=== PATIENT | male | born 1975 | race Caucasian/White ===

== ENCOUNTER 2017-04-23 06:03 | Emergency (ER) | payer BC ==
[2017-04-23] MEDS ORDERED: Sodium Chloride 0.9% 10 ML Syringe FLUSH PRN (06:27)
[2017-04-23] MEDS ORDERED: Diltiazem 25 MG/5 ML SDV IVPUSH ONE ×3 (06:29→09:46)
[2017-04-23] MEDS ORDERED: Diltiazem 125 MG in Sodium Chloride 0.9% 100 ML IV SCH (06:30)
[2017-04-23] MEDS ORDERED: Sodium Chloride 0.9% 1,000 ML IV SCH (06:30)
[2017-04-23] MEDS ORDERED: Ibutilide 1 MG/10 ML Vial IVPUSH ONE (06:30)
[2017-04-23] MEDS ORDERED: Aspirin 81 MG Tab.Chew PO ONE (06:31)
[2017-04-23] MEDS ORDERED: Ondansetron 4 MG/2 ML SDV IVPUSH ONE (06:34)
[2017-04-23] MEDS ORDERED: Pantoprazole 40 MG Vial IVPUSH ONE (06:42)
--- NOTE | 2017-04-23 06:49 | EDM.PDOC ---
<Lino Johns - Last Filed: 04/23/17 12:09> ED HPI GENERAL MEDICAL PROBLEM - General Chief Complaint: Cardiovascular Problem Stated Complaint: RAPID HEARTBEAT/NAUSEA Time Seen by Provider: 04/23/17 06:23 - Related Data Allergies Allergy/AdvReac Type Severity Reaction Status Date / Time No Known Allergies Allergy Verified 04/23/17 06:23 Home Meds: Home Meds Aspirin 81 mg PO BEDTIME #30 tab.chew 10/09/16 [Rx] Diltiazem [Cardizem CD] 120 mg PO DAILY #30 cap.cd 04/23/17 [Rx] ED CARDIOLOGY PROCEDURES - Cardioversion Time of Cardioversion: 10:09 (Her seizure was done with the aid of propofol and [employer] present.) Indication: Atrial Fibrillation With RVR Patient Counseled: Yes Informed Consent Obtained: Yes Preparation: IV Access, Airway Management Equipment, Supplemental Oxygen Pre-Procedure Sedation: Propofol Cardioversion Energy: Other (Initial dose was 50 J then he required 100 J x 3 further doses to provide return to sinus rhythm.) Mode: Biphasic Successful: Yes Number of Attempts: Other: (4) Patient Condition Post Cardioversion: Improved Post Cardioversion EKG Reviewed: Yes (Patient required amiodarone 150 mg intravenously after the 3rd cardioversio) Course - Vital Signs Last Recorded V/S: Last Vital Signs Temp 96.8 F 04/23/17 06:09 Pulse 81 04/23/17 12:16 Resp 12 04/23/17 12:16 BP 120/70 04/23/17 12:16 Pulse Ox 96 04/23/17 12:16 - Orders/Labs/Meds Labs: Laboratory Tests 04/23/17 04/23/17 04/23/17 Range/Units 06:35 06:35 06:35 WBC 7.01 (4.23-9.07) K/mm3 RBC 5.25 (4.63-6.08) M/mm3 Hgb 16.0 (13.7-17.5) gm/L Hct 45.0 (40.1-51.0) % MCV 85.7 (79.0-92.2) fl MCH 30.5 (25.7-32.2) pg MCHC 35.6 H (32.2-35.5) g/dl RDW Std Deviation 41.0 (35.1-43.9) fL Plt Count 301 (163-337) K/mm3 MPV 8.8 L (9.4-12.3) fl Neut % (Auto) 50.4 (34.0-67.9) % Lymph % (Auto) 38.1 (21.8-53.1) % [place] % (Auto) 9.1 (5.3-12.2) % Eos % (Auto) 1.7 (0.8-7.0) Baso % (Auto) 0.6 (0.1-1.2) % Neut # (Auto) 3.53 (1.78-5.38) K/mm3 Lymph # (Auto) 2.67 (1.32-3.57) K/mm3 [place] # (Auto) 0.64 (0.30-0.82) K/mm3 Eos # (Auto) 0.12 (0.04-0.54) K/mm3 Baso # (Auto) 0.04 (0.01-0.08) K/mm3 PT 10.9 (8.0-13.0) SECONDS INR 1.00 Sodium 144 (136-145) mEq/L Potassium 4.0 (3.5-5.1) mEq/L Chloride 105 (98-107) mEq/L Carbon Dioxide 24 (21-32) mEq/L Anion Gap 19.0 H (5-15) BUN 11 (7-18) mg/dL Creatinine 1.3 (0.7-1.3) mg/dL Est Cr Clr Drug Dosing 84.51 mL/min Estimated GFR (MDRD) > 60 (>60) mL/min BUN/Creatinine Ratio 8.5 L (14-18) Glucose 101 (74-106) mg/dL Calcium 8.8 (8.5-10.1) mg/dL Total Bilirubin 0.4 (0.2-1.0) mg/dL AST 21 (15-37) U/L ALT 37 (16-63) U/L Alkaline Phosphatase 112 (46-116) U/L Troponin I < 0.017 (0.00-0.056) ng/mL Total Protein 8.1 (6.4-8.2) g/dl Albumin 4.0 (3.4-5.0) g/dl Globulin 4.1 gm/dL Albumin/Globulin Ratio 1.0 (1-2) Meds: Medications Discontinued Medications Generic Name Dose Route Start Last Admin Trade Name Adryan PRN Reason Stop Dose Admin Amiodarone HCl Confirm 04/23/17 10:13 04/23/17 10:30 Cordarone Administered 04/23/17 10:14 Not Given Dose 150 mg .ROUTE .STK-MED ONE Aspirin 324 mg 04/23/17 06:31 04/23/17 06:38 Aspirin PO 04/23/17 06:32 324 mg ONETIME ONE Administration Diltiazem HCl 10 mg 04/23/17 06:29 04/23/17 06:46 Diltiazem IVPUSH 04/23/17 06:30 10 mg ONETIME ONE Administration Diltiazem HCl 10 mg 04/23/17 07:05 04/23/17 07:20 Diltiazem IVPUSH 04/23/17 07:06 10 mg ONETIME ONE Administration Diltiazem HCl 10 mg 04/23/17 09:46 04/23/17 09:52 Diltiazem IVPUSH 04/23/17 09:47 10 mg ONETIME ONE Administration Diltiazem HCl 120 mg 04/23/17 11:19 04/23/17 11:41 Cardizem Cd PO 04/23/17 11:20 120 mg ONETIME ONE Administration Fentanyl 50 mcg 04/23/17 10:21 04/23/17 10:45 Sublimaze IVPUSH 04/23/17 10:22 50 mcg ONETIME ONE Administration Sodium Chloride 1,000 mls @ 999 mls/hr 04/23/17 06:30 04/23/17 06:45 Normal Saline IV 125 mls/hr ASDIRECTED JAIME Administration Diltiazem HCl 125 mg/ Sodium 125 mls @ 10 mls/hr 04/23/17 06:30 04/23/17 06: 50 Chloride IV 10 mg/hr TITRATE JAIME 10 mls/hr Protocol Administration 10 MG/HR Ibutilide Fumarate 1 mg/ 60 mls @ 240 mls/hr 04/23/17 08:04 04/23/17 08:26 Sodium Chloride IV 04/23/17 08:18 240 mls/hr ONETIME ONE Administration Lidocaine HCl Confirm 04/23/17 10:12 Xylocaine-Mpf 1% Administered 04/23/17 10:13 Dose 4 mls @ as directed .ROUTE .STK-MED ONE Lactated Ringer's 1,000 mls @ 999 mls/hr 04/23/17 10:02 04/23/17 10:06 Ringers, Lactated IV 04/23/17 11:02 999 mls/hr .BOLUS ONE Administration Lactated Ringer's Confirm 04/23/17 10:04 04/23/17 10:49 Ringers, Lactated Administered 04/23/17 10:05 Not Given Dose 1,000 mls @ as directed .ROUTE .STK-MED ONE Amiodarone HCl/Dextrose 360 mg in 200 mls @ 33.333 mls/hr 04/23/17 10:30 05/04 10:27 Nexterone In Dextrose 360 Mg/200 Ml IV 33.333 mls/hr ASDIRECTED JAIME Administration Protocol Amiodarone HCl/Dextrose Confirm 04/23/17 10:22 04/23/17 10:28 Nexterone In Dextrose 360 Mg/200 Ml Administered 04/23/17 10:23 Not Given Dose 360 mg in 200 mls @ as directed .ROUTE .STK-MED ONE Amiodarone HCl 150 mg/ 103 mls @ 600 mls/hr 04/23/17 10:10 04/23/17 10:31 Dextrose/Water IV 04/23/17 10:20 Not Given .BOLUS ONE Amiodarone HCl/Dextrose 150 mg 100 mls @ 400 mls/hr 04/23/17 10:10 04/23/17 10:13 / Premix IV 04/23/17 10:24 400 mls/hr NOW ONE Administration Protocol Ibutilide Fumarate 1 mg 04/23/17 06:30 04/23/17 07:27 Corvert IVPUSH 04/23/17 06:31 1 mg ONETIME ONE Administration Metoclopramide HCl 10 mg 04/23/17 09:46 04/23/17 09:55 Reglan IVPUSH 04/23/17 09:47 10 mg ONETIME ONE Administration Midazolam HCl Confirm 04/23/17 10:11 Versed 1 Mg/Ml Administered 04/23/17 10:12 Dose 2 mg .ROUTE .STK-MED ONE Ondansetron HCl 4 mg 04/23/17 06:34 04/23/17 06:44 Zofran IVPUSH 04/23/17 06:35 4 mg ONETIME ONE Administration Pantoprazole Sodium 40 mg 04/23/17 06:42 04/23/17 07:02 Protonix Iv IVPUSH 04/23/17 06:43 40 mg ONETIME ONE Administration Propofol Confirm 04/23/17 10:11 Diprivan 20 Ml Administered 04/23/17 10:12 Dose 200 mg .ROUTE .STK-MED ONE Propofol Confirm 04/23/17 10:25 Diprivan 20 Ml Administered 04/23/17 10:26 Dose 200 mg .ROUTE .STK-MED ONE Sodium Chloride 10 ml 04/23/17 06:27 04/23/17 08:43 Saline Flush FLUSH 10 ml ASDIRECTED PRN Administration Keep Vein Open - Re-Assessments/Exams Free Text/Narrative Re-Assessment/Exam: 04/23/17 07:[address] Gregory at change of shift. Chemistry is now back revealing a sodium of 144 potassium of 4.0. Portal 5 bicarbonate 24. Anion gap is elevated at 19.0. Open up his normal saline 2999 mils per hour. Creatinine is 1.3 cardiac markers troponin is less than 0.017. Therefore we will proceed with the Corvert 1 mg IV over 15 minutes the minibag. 04/23/17 08:06 first dose of Corvert failed to convert him to sinus rhythm. Remains in atrial fibrillation in the one teens. Will provide second dose of Corvert intravenously via 50ml minibag over 15 minutes. 04/23/17 08:42 second dose of Corvert has been infused. Cardizem drip will be restarted at 10 mg per hour. 04/23/17 09:33 segment also Corvert failed to provide conversion back to sinus rhythm. He remains in atrial fib up into the 120s at times. Cardizem drip is still running at 10 mg per hour. I therefore gave him the option of pursuing cardioversion since its lead in a few hours and she went into atrial fibrillation he is a good candidate for this. Also the intensive. It is for this time and Cardizem drip usually dictates ICU admission. He was advised to start always successful but usually is so. This would allow him to go home on oral Cardizem tablet. After discussion patient is elected to pursue this line of treatment. I will call anesthesia hopefully they can provide propofol to provide sedation for this procedure. 04/23/17 09:47 patient is feeling somewhat apprehensive about potential cardioversion. Atrial fib rate is between 127 and 145 at this time. and therefore going to repeat a 10 mg bolus dose of Cardizem IV. We'll begin Reglan 10 mg IV for his nausea. 04/23/17 10:17 Cardioversion has been carried out x4. Initial dose was 50 J which failed to provide any conversion. Second dose was 100 J which provided transient return to sinus rhythm. Third dose was 100 J again which provided only transient return to sinus rhythm for perhaps one minute. Therefore given amiodarone 10 mg IV over 2 minutes. Required a second dose of propofol to provide anesthesia. Fourth dose of electricity was 100 J which provided stabilization in sinus rhythm. I will therefore put up an amiodarone drip at 60 mg per hour. The diltiazem drip was discontinued prior to giving the amiodarone IV. 04/23/17 10:21 we'll give fentanyl 50 mcg IV for chest wall pain that occurred secondary to the recurrent cardioversion. 04/23/17 10:55 Remains in sinus rhythm at 79 per minute. Denies feeling any pain in his chest. Amiodarone infusion will be run from the one hour and then will be discontinued. I will place him on Cardizem 120 mg extended release once daily. 04/23/17 11:26 amiodarone infusion has been discontinued. He remained in sinus rhythm in the ED's. BP 111/84. I will give him his first tablet of Cardizem CD 120 mg preparation in the ED and then he will be discharged on this medication once daily. Advise follow up with his physician in approximately a month's time. 04/23/17 11:46 patient remains in sinus rhythm in the 91 range. BP is now up to 131/68. He is finishing up her dinner meal. He'll then be discharged home. Departure - Departure Time of Disposition: 11:50 Disposition: Home, Self-Care 01 Condition: good Clinical Impression: New onset atrial fibrillation Prescriptions: Diltiazem [Cardizem CD] 120 mg PO DAILY #30 cap.cd Instructions: Atrial Fibrillation, [id number] Referrals: PCP,Not In Area [Primary Care Provider] - Forms: ED Department Discharge Additional Instructions: Evaluation in the emergency today in regards to recurrence of atrial fibrillation with a rapid ventricular rate. He was therefore initially treated with Cardizem drip and brought the rate under control but he did not convert to 2 regular rhythm. He was given no medication called Corvert 1 mg intravenously x2 to trying return you to normal regular sinus rhythm but it failed. He was therefore treated with cardioversion using electricity to convert to back to regular rhythm. This did to check on the fourth shock and you have remained in regular rhythm since. Suggest return to Cardizem CD preparation 120 mg once daily either bedtime or person in the morning whichever time that he is either to remember. Suggest followup with her personal care provider in a month's time. Of course return to the ED if any further problems with palpitations or recurrence of atrial fibrillation occur. <Hugo Gregory - Last Filed: 04/24/17 18:36> ED HPI GENERAL MEDICAL PROBLEM - General Source of Information: Reports: Patient History Limitations: Reports: No Limitations - History of Present Illness INITIAL COMMENTS - FREE TEXT/NARRATIVE: The patient presents with palpitations. He has a history of A-fib with his 1st episode back in September. He was in the ICU for a few days and he converted just on cardizem. He had been on cardizem until about 2 weeks ago. He stopped taking it because he felt like it was making him gain some weight. He woke up this morning not feeling right and noticed his heart was beating fast. He denies chest pain or shortness of breath. He has no fever, chills, cough, congestion or runny nose. He has no abdominal pain or vomiting. He does have some nausea. He thinks this just started this morning when he woke up about 4am. Onset: Sudden Duration: Hour(s): (2) Severity: Moderate Improves with: Reports: None Worsens with: Reports: None Associated Symptoms: Reports: Nausea/Vomiting. Denies: Chest Pain, Fever/Chills , Shortness of Breath Past Medical History - Past Health History Medical/Surgical History: Denies Medical/Surgical History Cardiovascular History: Reports: Afib Gastrointestinal History: Reports: GERD - Past Surgical History HEENT Surgical History: Reports: Detached Retina Cardiovascular Surgical History: Reports: None Social & Family History - Family History Family Medical History: Noncontributory - Tobacco Use Smoking Status *Q: Never Smoker Second Hand Smoke Exposure: No - Caffeine Use Caffeine Use: Reports: None - Alcohol Use Days Per Week of Alcohol Use: 7 Number of Drinks Per Day: 2 Total Drinks Per Week: 14 - Recreational Drug Use Recreational Drug Use: No - Living Situation & Occupation Living situation: Reports: , with Significant Other, with Family Occupation: Employed ED ROS GENERAL - Review of Systems Review Of Systems: See Below Constitutional: Reports: No Symptoms HEENT: Reports: No Symptoms Respiratory: Reports: No Symptoms Cardiovascular: Reports: Palpitations. Denies: Chest Pain Endocrine: Reports: No Symptoms GI/Abdominal: Reports: Nausea. Denies: Abdominal Pain, Vomiting : Reports: No Symptoms Musculoskeletal: Reports: No Symptoms ED EXAM, GENERAL - Physical Exam Exam: See Below Exam Limited By: No Limitations General Appearance: Alert, No Apparent Distress Ears: Normal External Exam Nose: Normal Inspection Head: Atraumatic, Normocephalic Neck: Normal Inspection Respiratory/Chest: No Respiratory Distress, Lungs Clear, Normal Breath Sounds Cardiovascular: Regular Rate, Rhythm, No Edema, No Murmur GI/Abdominal: Soft, Non-Tender, No Organomegaly, No Mass Back Exam: Normal Inspection Extremities: Normal Inspection Neurological: Alert, Oriented, No Motor/Sensory Deficits EKG INTERPRETATION EKG Date: 04/23/17 Time: 06:15 Rhythm: a-fib Rate (beats/min): 157 [place]: normal QRS: normal ST-T: normal QT: normal Course - Orders/Labs/Meds Labs: Laboratory Tests 04/23/17 04/23/17 04/23/17 Range/Units 06:35 06:35 06:35 WBC 7.01 (4.23-9.07) K/mm3 RBC 5.25 (4.63-6.08) M/mm3 Hgb 16.0 (13.7-17.5) gm/L Hct 45.0 (40.1-51.0) % MCV 85.7 (79.0-92.2) fl MCH 30.5 (25.7-32.2) pg MCHC 35.6 H (32.2-35.5) g/dl RDW Std Deviation 41.0 (35.1-43.9) fL Plt Count 301 (163-337) K/mm3 MPV 8.8 L (9.4-12.3) fl Neut % (Auto) 50.4 (34.0-67.9) % Lymph % (Auto) 38.1 (21.8-53.1) % [place] % (Auto) 9.1 (5.3-12.2) % Eos % (Auto) 1.7 (0.8-7.0) Baso % (Auto) 0.6 (0.1-1.2) % Neut # (Auto) 3.53 (1.78-5.38) K/mm3 Lymph # (Auto) 2.67 (1.32-3.57) K/mm3 [place] # (Auto) 0.64 (0.30-0.82) K/mm3 Eos # (Auto) 0.12 (0.04-0.54) K/mm3 Baso # (Auto) 0.04 (0.01-0.08) K/mm3 PT 10.9 (8.0-13.0) SECONDS INR 1.00 Sodium 144 (136-145) mEq/L Potassium 4.0 (3.5-5.1) mEq/L Chloride 105 (98-107) mEq/L Carbon Dioxide 24 (21-32) mEq/L Anion Gap 19.0 H (5-15) BUN 11 (7-18) mg/dL Creatinine 1.3 (0.7-1.3) mg/dL Est Cr Clr Drug Dosing 84.51 mL/min Estimated GFR (MDRD) > 60 (>60) mL/min BUN/Creatinine Ratio 8.5 L (14-18) Glucose 101 (74-106) mg/dL Calcium 8.8 (8.5-10.1) mg/dL Total Bilirubin 0.4 (0.2-1.0) mg/dL AST 21 (15-37) U/L ALT 37 (16-63) U/L Alkaline Phosphatase 112 (46-116) U/L Troponin I < 0.017 (0.00-0.056) ng/mL Total Protein 8.1 (6.4-8.2) g/dl Albumin 4.0 (3.4-5.0) g/dl Globulin 4.1 gm/dL Albumin/Globulin Ratio 1.0 (1-2) - Re-Assessments/Exams Free Text/Narrative Re-Assessment/Exam: 04/23/17 06:51 I ordered an IV NS at 125mL/hr, zofran 4mg IV, cardizem bolus of 10mg and a drip at 10mg/hr, labs, EKG, CXR and possibly corvert to convert him. His EKG shows A-fib at a rate of 157. 04/23/17 07:06 I ordered another cardizem 10mg IV. It is change of shift. Dr Johns will be taking over. Departure - Departure Condition: good
--- NOTE | 2017-04-23 08:01 | CR ---
Chest: Portable view of the chest was obtained. Comparison: Previous chest x-ray of 12/31/16. Heart size appears within normal limits for portable technique. Upper mediastinum also appears within normal limits. Lungs are clear. Bony structures are grossly intact. Impression: 1. Nothing acute is appreciated on portable chest x-ray. Diagnostic code #1
[2017-04-23] MEDS ORDERED: Metoclopramide 10 MG/2 ML SDV IVPUSH ONE (09:46)
--- NOTE | 2017-04-23 09:53 | PCM.PREANE ---
Preanesthetic Assessment - Anesthesia/Transfusion/Family Hx Anesthesia History: Prior Anesthesia Without Reaction Family History of Anesthesia Reaction: No Transfusion History: No Prior Transfusion(s) - Review of Systems General: Malaise Pulmonary: No Symptoms Cardiovascular: Palpitations Gastrointestinal: No symptoms Neurological: No Symptoms Other: Reports: None - Physical Assessment NPO Status Date: 04/22/17 NPO Status Time: 00:00 Pulse: 129 O2 Sat by Pulse Oximetry: 98 Respiratory Rate: 16 Blood Pressure: 116/81 Vital Signs: Last Vital Signs Temp 36.0 C 04/23/17 06:09 Pulse 159 H 04/23/17 06:09 Resp 16 04/23/17 06:09 BP 120/100 H 04/23/17 06:09 Pulse Ox 98 04/23/17 06:09 Height: 1.85 m Weight: 113.398 kg ASA Class: 2E Mental Status: Alert & Oriented x3 Airway Class: Mallampati = 1 Dentition: Reports: Normal Dentition Thyro-Mental Finger Breadths: 3 Mouth Opening Finger Breadths: 3 ROM/Head Extension: Full Lungs: Clear to auscultation, Normal respiratory effort Cardiovascular: Irregular Rhythm, Tachycardia - Lab Values: Laboratory Last Values WBC 7.01 K/mm3 (4.23-9.07) 04/23/17 06:35 RBC 5.25 M/mm3 (4.63-6.08) 04/23/17 06:35 Hgb 16.0 gm/L (13.7-17.5) 04/23/17 06:35 Hct 45.0 % (40.1-51.0) 04/23/17 06:35 MCV 85.7 fl (79.0-92.2) 04/23/17 06:35 MCH 30.5 pg (25.7-32.2) 04/23/17 06:35 MCHC 35.6 g/dl (32.2-35.5) H 04/23/17 06:35 RDW Std Deviation 41.0 fL (35.1-43.9) 04/23/17 06:35 Plt Count 301 K/mm3 (163-337) 04/23/17 06:35 MPV 8.8 fl (9.4-12.3) L 04/23/17 06:35 Neut % (Auto) 50.4 % (34.0-67.9) 04/23/17 06:35 Lymph % (Auto) 38.1 % (21.8-53.1) 04/23/17 06:35 [place] % (Auto) 9.1 % (5.3-12.2) 04/23/17 06:35 Eos % (Auto) 1.7 (0.8-7.0) 04/23/17 06:35 Baso % (Auto) 0.6 % (0.1-1.2) 04/23/17 06:35 Neut # (Auto) 3.53 K/mm3 (1.78-5.38) 04/23/17 06:35 Lymph # (Auto) 2.67 K/mm3 (1.32-3.57) 04/23/17 06:35 [place] # (Auto) 0.64 K/mm3 (0.30-0.82) 04/23/17 06:35 Eos # (Auto) 0.12 K/mm3 (0.04-0.54) 04/23/17 06:35 Baso # (Auto) 0.04 K/mm3 (0.01-0.08) 04/23/17 06:35 PT 10.9 SECONDS (8.0-13.0) 04/23/17 06:35 INR 1.00 04/23/17 06:35 Sodium 144 mEq/L (136-145) 04/23/17 06:35 Potassium 4.0 mEq/L (3.5-5.1) 04/23/17 06:35 Chloride 105 mEq/L (98-107) 04/23/17 06:35 Carbon Dioxide 24 mEq/L (21-32) 04/23/17 06:35 Anion Gap 19.0 (5-15) H 04/23/17 06:35 BUN 11 mg/dL (7-18) 04/23/17 06:35 Creatinine 1.3 mg/dL (0.7-1.3) 04/23/17 06:35 Est Cr Clr Drug Dosing 84.51 mL/min 04/23/17 06:35 Estimated GFR (MDRD) > 60 mL/min (>60) 04/23/17 06:35 BUN/Creatinine Ratio 8.5 (14-18) L 04/23/17 06:35 Glucose 101 mg/dL (74-106) 04/23/17 06:35 Calcium 8.8 mg/dL (8.5-10.1) 04/23/17 06:35 Total Bilirubin 0.4 mg/dL (0.2-1.0) 04/23/17 06:35 AST 21 U/L (15-37) 04/23/17 06:35 ALT 37 U/L (16-63) 04/23/17 06:35 Alkaline Phosphatase 112 U/L (46-116) 04/23/17 06:35 Troponin I < 0.017 ng/mL (0.00-0.056) 04/23/17 06:35 Total Protein 8.1 g/dl (6.4-8.2) 04/23/17 06:35 Albumin 4.0 g/dl (3.4-5.0) 04/23/17 06:35 Globulin 4.1 gm/dL 04/23/17 06:35 Albumin/Globulin Ratio 1.0 (1-2) 04/23/17 06:35 - Imaging/EKG Impressions: on chart - Allergies Allergies/Adverse Reactions: Allergies Allergy/AdvReac Type Severity Reaction Status Date / Time No Known Allergies Allergy Verified 04/23/17 06:23 - Blood Blood Available: No Product(s) Available: None - Acknowledgements Anesthesia Type Planned: MAC Pt an Appropriate Candidate for the Planned Anesthesia: Yes Alternatives and Risks of Anesthesia Discussed w Pt/Guardian: Yes Pt/Guardian Understands and Agrees with Anesthesia Plan: Yes PreAnesthesia Questionnaire - Past Health History Medical/Surgical History: Denies Medical/Surgical History Cardiovascular History: Reports: Afib Gastrointestinal History: Reports: GERD - Past Surgical History HEENT Surgical History: Reports: Detached Retina Cardiovascular Surgical History: Reports: None - SUBSTANCE USE Smoking Status *Q: Never Smoker Tobacco Use Within Last Twelve Months: No Second Hand Smoke Exposure: No Days Per Week of Alcohol Use: 7 Number of Drinks Per Day: 2 Total Drinks Per Week: 14 Recreational Drug Use History: No - HOME MEDS Home Medications: Home Meds Aspirin 81 mg PO BEDTIME #30 tab.chew 10/09/16 [Rx] Diltiazem [Cardizem] 30 mg PO Q12HR #60 tablet 10/09/16 [Rx] - CURRENT (IN HOUSE) MEDS Current Meds: Current Medications Sodium Chloride (Normal Saline) 1,000 mls @ 999 mls/hr IV ASDIRECTED JAIME Last Admin: 04/23/17 06:45 Dose: 125 mls/hr Diltiazem HCl 125 mg/ Sodium (Chloride) 125 mls @ 10 mls/hr IV TITRATE JAIME; 10 MG/HR PRN Reason: Protocol Last Admin: 04/23/17 06:50 Dose: 10 mg/hr, 10 mls/hr Sodium Chloride (Saline Flush) 10 ml FLUSH ASDIRECTED PRN PRN Reason: Keep Vein Open Last Admin: 04/23/17 08:43 Dose: 10 ml Discontinued Medications Aspirin (Aspirin) 324 mg PO ONETIME ONE Stop: 04/23/17 06:32 Last Admin: 04/23/17 06:38 Dose: 324 mg Diltiazem HCl (Diltiazem) 10 mg IVPUSH ONETIME ONE Stop: 04/23/17 06:30 Last Admin: 04/23/17 06:46 Dose: 10 mg Diltiazem HCl (Diltiazem) 10 mg IVPUSH ONETIME ONE Stop: 04/23/17 07:06 Last Admin: 04/23/17 07:20 Dose: 10 mg Diltiazem HCl (Diltiazem) 10 mg IVPUSH ONETIME ONE Stop: 04/23/17 09:47 Ibutilide Fumarate 1 mg/ (Sodium Chloride) 60 mls @ 240 mls/hr IV ONETIME ONE Stop: 04/23/17 08:18 Last Admin: 04/23/17 08:26 Dose: 240 mls/hr Ibutilide Fumarate (Corvert) 1 mg IVPUSH ONETIME ONE Stop: 04/23/17 06:31 Last Admin: 04/23/17 07:27 Dose: 1 mg Metoclopramide HCl (Reglan) 10 mg IVPUSH ONETIME ONE Stop: 04/23/17 09:47 Ondansetron HCl (Zofran) 4 mg IVPUSH ONETIME ONE Stop: 04/23/17 06:35 Last Admin: 04/23/17 06:44 Dose: 4 mg Pantoprazole Sodium (Protonix Iv) 40 mg IVPUSH ONETIME ONE Stop: 04/23/17 06:43 Last Admin: 04/23/17 07:02 Dose: 40 mg
[2017-04-23] MEDS ORDERED: Lactated Ringers 1,000 ML IV ONE (10:02)
[2017-04-23] MEDS ORDERED: Lactated Ringers 1,000 ML ONE (10:04)
[2017-04-23] MEDS ORDERED: Amiodarone 150 MG in Dextrose 5% in Water 100 ML IV ONE ×2 (10:10)
[2017-04-23] MEDS ORDERED: Amiodarone In Dextrose,Iso-Osm 150 MG in Premix Bag 1 BAG IV ONE ×2 (10:10)
[2017-04-23] MEDS ORDERED: Propofol 200 MG/20 ML SDV ONE ×2 (10:11→10:25)
[2017-04-23] MEDS ORDERED: Midazolam 1 MG/ML 2 ML SDV ONE (10:11)
[2017-04-23] MEDS ORDERED: Lidocaine 1% 4 ML ONE (10:12)
[2017-04-23] MEDS ORDERED: Amiodarone 150 MG/3 ML SDV ONE (10:13)
[2017-04-23] MEDS ORDERED: fentaNYL 100 MCG/2 ML SDV IVPUSH ONE (10:21)
[2017-04-23] MEDS ORDERED: Diltiazem 120 MG Cap.CD PO ONE (11:19)
[2017-04-23 12:19] VITALS: BP 120/70
== END 2017-04-23 12:19 | disposition home or self-care (01) ==
LOC: JD.ED 06:03
DX: I48.91 Unspecified atrial fibrillation (principal); Z79.899 Other long term (current) drug therapy; K21.9 Gastro-esophageal reflux disease without esophagitis; Z98.890 Other specified postprocedural states
CPT/HCPCS: 36415; 71010; 80053; 84484; 85025; 85610; 92960; 93005; 96361; 96365; 96366; 96375; 96376; 99285; A9270; C9113; J0282; J1742; J2250; J2405; J2765; J3010; J7030; J7040; J7050; J7120; 00410; 99284-25; J2704; J3490

== ENCOUNTER 2018-01-15 11:44 | Emergency (ER) | payer BC ==
[2018-01-15 12:01] VITALS: BP 113/77
--- NOTE | 2018-01-15 13:41 | EDM.PDOC ---
<Shanita Reza - Last Filed: 01/15/18 13:36> ED HPI GENERAL MEDICAL PROBLEM - General Chief Complaint: Upper Extremity Injury/Pain Stated Complaint: RT ARM PAIN Time Seen by Provider: 01/15/18 13:00 - History of Present Illness INITIAL COMMENTS - FREE TEXT/NARRATIVE: Patient is a 42 year old male presents today with right elbow pain. The pain occurred at work when he was pulling heavy cables toward him and her felt a "pop " near his elbow. He was since in the walk-in clinic on Saturday and underwent an x-ray with no acute findings. We was given a compression sleeve and was told to manage with conservative therapy. He denies any previous arm injuries, numbness or tingling into his right hand, or pain at this time, but pain with supination and pronation. Patient is interested in obtaining an MRI, but was told at the clinic on Saturday that he would need to try conservative therapy and PT before that could be obtains. He is here today in hopes of obtaining an MRI. He also has a follow up appointment with his PCP for his elbow pain later today. 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 (see below) Other Treatments PLASTICS SUPERVISOR: motrin yesterday 800 mg Right Arm Pain Score (Numeric/FACES): 4 - Related Data Allergies Allergy/AdvReac Type Severity Reaction Status Date / Time No Known Allergies Allergy Verified 04/23/17 06:23 Home Meds: Home Meds Omeprazole [priLOSEC OTC] 20 mg PO DAILY 01/15/18 [History] Past Medical History - Past Health History Medical/Surgical History: Denies Medical/Surgical History Cardiovascular History: Reports: Afib, Other (See Below) Other Cardiovascular History: not being treated for a-fib anymore;off medication about 8 months ago Gastrointestinal History: Reports: GERD - Past Surgical History HEENT Surgical History: Reports: Detached Retina Cardiovascular Surgical History: Reports: None Social & Family History - Family History Family Medical History: Noncontributory - Tobacco Use Smoking Status *Q: Never Smoker Second Hand Smoke Exposure: No - Caffeine Use Caffeine Use: Reports: Soda Other Caffeine Use: no caffeiine - Alcohol Use Days Per Week of Alcohol Use: 7 Number of Drinks Per Day: 2 Total Drinks Per Week: 14 - Recreational Drug Use Recreational Drug Use: No - Living Situation & Occupation Living situation: Reports: , with Significant Other, with Family Occupation: Employed Review of Systems - Review of Systems Constitutional: Denies: Chills, Fever, Weakness Musculoskeletal: Reports: Arm Pain. Denies: Neck Pain, Shoulder Pain, Hand Pain Neurological: Denies: Numbness, Tingling ED EXAM, GENERAL - Physical Exam Exam Limited By: No Limitations General Appearance: Alert, No Apparent Distress Neck: Full Range of Motion Respiratory/Chest: No Respiratory Distress, Lungs Clear, Normal Breath Sounds Cardiovascular: Normal Peripheral Pulses, Regular Rate, Rhythm Extremities: Normal Inspection, Normal Capillary Refill, Arm Pain, Limited Range of Motion (pain upon supination and pronation of right elbow; no pain with flexion/extension). No: Joint Swelling, Increased Warmth, Redness Neurological: Alert, Oriented Psychiatric: Normal Affect, Normal Mood Course - Vital Signs Last Recorded V/S: Last Vital Signs Temp 36.6 C 01/15/18 11:59 Pulse 108 H 01/15/18 11:59 Resp 20 01/15/18 11:59 BP 113/77 01/15/18 11:59 Pulse Ox 97 01/15/18 11:59 Departure - Departure Disposition: Against Medical Advice 07 Clinical Impression: Strain of right elbow - Discharge Information Referrals: PCP,None [Primary Care Provider] - Forms: ED Department Discharge <Lino Johns - Last Filed: 01/16/18 07:20> ED HPI GENERAL MEDICAL PROBLEM - History of Present Illness Onset: Sudden Onset Date: 01/11/18 Duration: Day(s):, Constant Location: Reports: Upper Extremity, Right Quality: Reports: Ache (Right elbow pain) Severity: Moderate Improves with: Reports: Cold Therapy, Rest Worsens with: Reports: Movement Context: Reports: Other (Occurred while pulling on heavy cables in the workplace.). Denies: Activity, Exercise, Lifting, Sick Contact Associated Symptoms: Reports: No Other Symptoms Treatments PLASTICS SUPERVISOR: Reports: NSAIDS Review of Systems - Review of Systems Review Of Systems: See Below Musculoskeletal: Reports: Arm Pain (Right elbow pain) ED EXAM, GENERAL - Physical Exam Exam: See Below Course - Radiology Interpretation Free Text/Narrative:: 42-year-old male presented to the ED and was seen by PA student. He essentially has had an injury to his bicipital tendon at the elbow. He is scheduled appointment to see his primary care physician in one and a half hours. He came to the ED seeking MRI which was not indicated. Neither would be available. At a rate decision made once he was told this that he would leave the department. He will follow-up with his primary care provider later this afternoon as planned. Departure - Departure Time of Disposition: 13:50 Condition: Fair
== END 2018-01-15 13:26 | disposition left against medical advice (07) ==
LOC: JD.ED 11:44
DX: S46.911A Strain of unspecified muscle, fascia and tendon at shoulder and upper arm level, right arm, initial encounter (principal); Z79.899 Other long term (current) drug therapy; X50.1XXA Overexertion from prolonged static or awkward postures, initial encounter
CPT/HCPCS: 99283

== ENCOUNTER 2018-02-03 08:44 | Emergency (ER) | payer BC ==
--- NOTE | 2018-02-03 08:52 | EDM.PDOC ---
ED HPI GENERAL MEDICAL PROBLEM - General Chief Complaint: Chest Pain Stated Complaint: CHEST PAIN Time Seen by Provider: 02/03/18 08:50 Source of Information: Reports: Patient History Limitations: Reports: No Limitations - History of Present Illness INITIAL COMMENTS - FREE TEXT/NARRATIVE: 42-year-old male presents to the ED with atypical chest pains. States intermittent sharp lancinating squeezing type pains central chest twice in the last 2 days. He has a history of intermittent atrial fibrillation with A. fib of at least 2 documented occasions. Once he was admitted the hospital once she was cardioverted and discharged home. He believes symptoms started on Saturday evening which would be less than 48 hour frances. He is not aware of any palpitations and was x-ray surprised to find that he was back in fibrillation. He said some mild cough that hurts. Doesn't know for relief of short of breath he has no hemoptysis. Work today but came home because the was no work due to weather conditions. Does not feel dizzy or lightheaded. Left normally last night without any orthopnea or PND. He states he had about 7 beers over the weekend and in the past age fibrillation seems to have occurred after drinking alcohol. He hasn't drank for quite a lengthy period of time. Denies any decongestants or stimulants. Denies any street drug use. Only current medication is Prilosec 20 mg daily. Onset: Unknown/Unsure (He had the first part of squeezing type chest pain on Saturday evening later in the evening. Yesterday he appreciated some pressure up into his mandible and teeth were aching.) Duration: Hour(s): Location: Reports: Chest (Mostly central chest squeezing discomfort intermittently with radiation up into his mandible. 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: Other (see below) (None.) Chest Pain Score (Numeric/FACES): 2 - Related Data Allergies Allergy/AdvReac Type Severity Reaction Status Date / Time No Known Allergies Allergy Verified 02/03/18 08:50 Home Meds: Home Meds Omeprazole [priLOSEC OTC] 20 mg PO DAILY 01/15/18 [History] Diltiazem HCl [Cardizem Cd] 180 mg PO DAILY #30 cap.er.24h 02/03/18 [Rx] Rivaroxaban [Xarelto] 20 mg PO DAILY #30 tablet 02/03/18 [Rx] Past Medical History - Past Health History Medical/Surgical History: Denies Medical/Surgical History Cardiovascular History: Reports: Afib (Paroxysmal intermittent atrial fibrillation currently off medications for about 8 months), Other (See Below) Other Cardiovascular History: not being treated for a-fib anymore;off medication about 8 months ago Gastrointestinal History: Reports: GERD - Past Surgical History HEENT Surgical History: Reports: Detached Retina Cardiovascular Surgical History: Reports: None Social & Family History - Family History Family Medical History: Noncontributory - Tobacco Use Smoking Status *Q: Never Smoker Second Hand Smoke Exposure: No - Caffeine Use Caffeine Use: Reports: Soda Other Caffeine Use: no caffeiine - Alcohol Use Days Per Week of Alcohol Use: 7 Number of Drinks Per Day: 2 Total Drinks Per Week: 14 - Recreational Drug Use Recreational Drug Use: No - Living Situation & Occupation Living situation: Reports: , with Significant Other, with Family Occupation: Employed ED ROS GENERAL - Review of Systems Review Of Systems: See Below Constitutional: Denies: Fever, Chills, Malaise, Weakness, Decreased Appetite, Weight Loss HEENT: Reports: No Symptoms Respiratory: Reports: Shortness of Breath, Cough (Intermittently has a cough that hurts his anterior chest when he coughs. Not productive) Cardiovascular: Reports: Chest Pain. Denies: Blood Pressure Problem (As noted in history present illness), Claudication, Dyspnea on Exertion, Edema, Lightheadedness, Orthopnea, Palpitations Endocrine: Reports: No Symptoms GI/Abdominal: Reports: No Symptoms : Reports: No Symptoms Musculoskeletal: Reports: No Symptoms Skin: Reports: No Symptoms Neurological: Reports: No Symptoms Psychiatric: Reports: No Symptoms Hematologic/Lymphatic: Reports: No Symptoms Immunologic: Reports: No Symptoms ED EXAM, GENERAL - Physical Exam Exam: See Below Exam Limited By: No Limitations General Appearance: Alert, WD/WN, Anxious, Mild Distress (Mildly anxious once he found out he was in atrial fibrillation once again) Eye Exam: Bilateral Eye: Normal Inspection (No jaundice.) Head: Atraumatic, Normocephalic Neck: Normal Inspection, Supple, Non-Tender, Full Range of Motion, Other. No: Lymphadenopathy (L), Lymphadenopathy (R) Respiratory/Chest: No Respiratory Distress (No elevation of jugular venous pulsations), Lungs Clear, Normal Breath Sounds, No Accessory Muscle Use, Chest Non-Tender Cardiovascular: No Edema, No Gallop, No Murmur, No Rub, Tachycardia (Atrial fibrillation), Irregularly Irregular. No: Regular Rate, Rhythm (Atrial fibrillation on the monitor of 1 45/m) Peripheral Pulses: 2+: Posterior Tibial (L), Posterior Tibial (R), Dorsalis Pedis (L), Dorsalis Pedis (R) GI/Abdominal: Normal Bowel Sounds, Soft, Non-Tender, No Organomegaly, No Abnormal Bruit, No Mass, Pelvis Stable Back Exam: Normal Inspection, Full Range of Motion Extremities: Normal Inspection, Normal Range of Motion, Non-Tender, No Pedal Edema Neurological: Oriented, CN II-XII Intact, Normal Cognition, Normal Gait, No Motor/Sensory Deficits Psychiatric: Normal Affect, Normal Mood Skin Exam: Warm, Dry, Intact, Normal Color, No Rash EKG INTERPRETATION EKG Date: 02/03/18 Time: 08:50 Rhythm: A-Fib (With rate of 90-1 45/m) Rate (Beats/Min): 122 [place]: Normal P-Wave: Present QRS: Other (Decreased voltage in the limb leads.) ST-T: Other (Diffuse early repolarization pattern likely related to rate.) QT: Normal EKG Interpretation Comments: Abnormal ECG. Course - Vital Signs Last Recorded V/S: Last Vital Signs Temp 36.9 C 02/03/18 08:51 Pulse 84 02/03/18 11:56 Resp 11 L 02/03/18 11:56 BP 112/82 02/03/18 11:56 Pulse Ox 96 02/03/18 11:56 - Orders/Labs/Meds Orders: Active Orders 24 hr Category Date Time Status EKG Documentation Completion [RC] STAT Care 02/03/18 09:00 Active Diltiazem 125 mg Med 02/03/18 09:00 Active Sodium Chloride 0.9% [Normal Saline] 100 ml IV ASDIRECTED Rivaroxaban [Xarelto] Med 02/04/18 10:50 Once 20 mg PO ONETIME ONE Sodium Chloride 0.9% [Normal Saline] 1,000 ml Med 02/03/18 09:00 Active IV ASDIRECTED Medication Orders Diltiazem HCl 125 mg/ Sodium (Chloride) 125 mls @ 10 mls/hr IV ASDIRECTED JAIME PRN Reason: 10 MG/HR Last Admin: 02/03/18 09:16 Dose: 10 mg/hr, 10 mls/hr Sodium Chloride (Normal Saline) 1,000 mls @ 125 mls/hr IV ASDIRECTED JAIME Last Admin: 02/03/18 09:08 Dose: 125 mls/hr Rivaroxaban (Xarelto) 20 mg PO ONETIME ONE Stop: 02/04/18 10:51 Last Admin: 02/03/18 11:07 Dose: 20 mg Labs: Laboratory Tests 02/03/18 02/03/18 02/03/18 Range/Units 09:00 09:00 09:00 WBC 6.75 (4.23-9.07) K/mm3 RBC 5.76 (4.63-6.08) M/mm3 Hgb 17.2 (13.7-17.5) gm/L Hct 49.8 (40.1-51.0) % MCV 86.5 (79.0-92.2) fl MCH 29.9 (25.7-32.2) pg MCHC 34.5 (32.2-35.5) g/dl RDW Std Deviation 41.9 (35.1-43.9) fL Plt Count 222 (163-337) K/mm3 MPV 9.3 L (9.4-12.3) fl Neutrophils % (Manual) 71 H (40-60) % Band Neutrophils % 0 (0-10) % Lymphocytes % (Manual) 18 L (20-40) % Atypical Lymphs % 0 % Monocytes % (Manual) 8 (2-10) % Eosinophils % (Manual) 2 (0.8-7.0) % Basophils % (Manual) 1 (0.2-1.2) Platelet Estimate Adequate Anisocytosis 1+ slight RBC Morph Comment Abnormal PT 10.7 (8.0-13.0) SECONDS INR 1.00 D-Dimer, Quantitative < 0.19 L (0.19-0.59) mg/L Sodium 139 (136-145) mEq/L Potassium 4.1 (3.5-5.1) mEq/L Chloride 105 (98-107) mEq/L Carbon Dioxide 24 (21-32) mEq/L Anion Gap 14.1 (5-15) BUN 17 (7-18) mg/dL Creatinine 1.4 H (0.7-1.3) mg/dL Est Cr Clr Drug Dosing 79.92 mL/min Estimated GFR (MDRD) 56 (>60) mL/min BUN/Creatinine Ratio 12.1 L (14-18) Glucose 84 (74-106) mg/dL Calcium 9.4 (8.5-10.1) mg/dL Magnesium (1.8-2.4) mg/dl Total Bilirubin 0.5 (0.2-1.0) mg/dL AST 19 (15-37) U/L ALT 29 (16-63) U/L Alkaline Phosphatase 109 (46-116) U/L CK-MB (CK-2) 1.3 (0-3.6) ng/ml Troponin I < 0.017 (0.00-0.056) ng/mL C-Reactive Protein 0.2 (<1.0) mg/dL NT-Pro-B Natriuret Pep (0-125) pg/mL Total Protein 8.0 (6.4-8.2) g/dl Albumin 4.1 (3.4-5.0) g/dl Globulin 3.9 gm/dL Albumin/Globulin Ratio 1.1 (1-2) Amylase (25-115) U/L TSH 3rd Generation 1.323 (0.358-3.74) uIU/mL Urine Opiates Screen (NEGATIVE) Ur Buprenorphine Scrn (NEGATIVE) Ur Oxycodone Screen (NEGATIVE) Urine Methadone Screen (NEGATIVE) Ur Propoxyphene Screen (NEGATIVE) Ur Barbiturates Screen (NEGATIVE) Ur Tricyclics Screen (NEGATIVE) Ur Phencyclidine Scrn (NEGATIVE) Ur Amphetamine Screen (NEGATIVE) U Methamphetamines Scrn (NEGATIVE) U Benzodiazepines Scrn (NEGATIVE) U Cocaine Metab Screen (NEGATIVE) U Marijuana (THC) Screen (NEGATIVE) 02/03/18 02/03/18 02/03/18 Range/Units 09:00 09:00 10:31 WBC (4.23-9.07) K/mm3 RBC (4.63-6.08) M/mm3 Hgb (13.7-17.5) gm/L Hct (40.1-51.0) % MCV (79.0-92.2) fl MCH (25.7-32.2) pg MCHC (32.2-35.5) g/dl RDW Std Deviation (35.1-43.9) fL Plt Count (163-337) K/mm3 MPV (9.4-12.3) fl Neutrophils % (Manual) (40-60) % Band Neutrophils % (0-10) % Lymphocytes % (Manual) (20-40) % Atypical Lymphs % % Monocytes % (Manual) (2-10) % Eosinophils % (Manual) (0.8-7.0) % Basophils % (Manual) (0.2-1.2) Platelet Estimate Anisocytosis RBC Morph Comment PT (8.0-13.0) SECONDS INR D-Dimer, Quantitative (0.19-0.59) mg/L Sodium (136-145) mEq/L Potassium (3.5-5.1) mEq/L Chloride (98-107) mEq/L Carbon Dioxide (21-32) mEq/L Anion Gap (5-15) BUN (7-18) mg/dL Creatinine (0.7-1.3) mg/dL Est Cr Clr Drug Dosing mL/min Estimated GFR (MDRD) (>60) mL/min BUN/Creatinine Ratio (14-18) Glucose (74-106) mg/dL Calcium (8.5-10.1) mg/dL Magnesium 1.7 L (1.8-2.4) mg/dl Total Bilirubin (0.2-1.0) mg/dL AST (15-37) U/L ALT (16-63) U/L Alkaline Phosphatase (46-116) U/L CK-MB (CK-2) (0-3.6) ng/ml Troponin I (0.00-0.056) ng/mL C-Reactive Protein (<1.0) mg/dL NT-Pro-B Natriuret Pep 1154 H (0-125) pg/mL Total Protein (6.4-8.2) g/dl Albumin (3.4-5.0) g/dl Globulin gm/dL Albumin/Globulin Ratio (1-2) Amylase 75 (25-115) U/L TSH 3rd Generation (0.358-3.74) uIU/mL Urine Opiates Screen Negative (NEGATIVE) Ur Buprenorphine Scrn Negative (NEGATIVE) Ur Oxycodone Screen Negative (NEGATIVE) Urine Methadone Screen Negative (NEGATIVE) Ur Propoxyphene Screen Negative (NEGATIVE) Ur Barbiturates Screen Negative (NEGATIVE) Ur Tricyclics Screen Negative (NEGATIVE) Ur Phencyclidine Scrn Negative (NEGATIVE) Ur Amphetamine Screen Negative (NEGATIVE) U Methamphetamines Scrn Negative (NEGATIVE) U Benzodiazepines Scrn Negative (NEGATIVE) U Cocaine Metab Screen Negative (NEGATIVE) U Marijuana (THC) Screen Negative (NEGATIVE) Meds: Medications Generic Name Dose Route Start Last Admin Trade Name Freq PRN Reason Stop Dose Admin Diltiazem HCl 125 mg/ Sodium 125 mls @ 10 mls/hr 02/03/18 09:00 02/03/18 09: 16 Chloride IV 10 mg/hr ASDIRECTED JAIME 10 mls/hr 10 MG/HR Administration Sodium Chloride 1,000 mls @ 125 mls/hr 02/03/18 09:00 02/03/18 09:08 Normal Saline IV 125 mls/hr ASDIRECTED JAIME Administration Rivaroxaban 20 mg 02/04/18 10:50 02/03/18 11:07 Xarelto PO 02/04/18 10:51 20 mg ONETIME ONE Administration Discontinued Medications Generic Name Dose Route Start Last Admin Trade Name Freq PRN Reason Stop Dose Admin Aspirin 324 mg 02/03/18 09:06 02/03/18 09:17 Aspirin PO 02/03/18 09:07 324 mg ONETIME ONE Administration Diltiazem HCl 10 mg 02/03/18 08:58 02/03/18 09:08 Diltiazem IVPUSH 02/03/18 08:59 10 mg ONETIME ONE Administration Diltiazem HCl 180 mg 02/03/18 10:49 02/03/18 10:59 Cardizem Cd PO 02/03/18 10:50 180 mg ONETIME ONE Administration - Radiology Interpretation Free Text/Narrative:: 42-year-old male once again presents to the ED with central chest pressure discomfort intermittently for the last 2 days. Pain intermittently has rated up into his mandible and mediastinum teeth hurt. This suggest angina. On the monitor he is in atrial fibrillation with a rate as high as 1 50/m. Is a history of paroxysmal atrial fibrillation with documentation of this rhythm at least twice in the past. The first time he was admitted to hospital. Second time he was cardioverted in the ED. He was on medications up until about 8 months ago to keep atrial fibrillation at bay. He states all times that is developing fibrillation seems to be after drinking alcohol. He admits to having 7 or 8 beers over the weekend celebrating [employer]. Does not use any other stimulant drugs . Currently only medication he is on is omeprazole 20 mg daily ECG shows atrial fibrillation with a rate of 9245/m. Diffuse early repolarization pattern without any definite ischemic changes. Decreased voltage in the limb leads. Plan complete cardiac workup will be done. Given 4 baby aspirins chewed. One view chest x-ray to be done .IV will be normal saline at 125 mils per hour. Cardizem 10 mg IV bolus to be given and then 10 mg drip per hour. - Re-Assessments/Exams Free Text/Narrative Re-Assessment/Exam: 02/03/18 09:24 portable chest x-ray is essentially normal. His or perhaps slightly hyperinflated but he is a tall man. Heart rate is starting to come under control in the 1 teens. Blood pressure is 105/91. 02 sats are 98% on room air. From reading my old notes from April 18 I cardioverted him I was able slowed down with Cardizem I'm [place] 2 doses did nothing. He required cardioversion 4 with the use of amiodarone 10 mg IV bolus to maintain him in sinus rhythm. I will await his labs and then maybe converted back to amiodarone infusion prior to consideration of cardioversion. 02/03/18 09:45 rate is under good control around 95-100/m. BP is 110/80. Labs are pending. 02/03/18 10:16 Labs are back showing a normal white count at 6.75. Differential 71% neutrophils no bands. Hemoglobin is slightly elevated at 17.2 with hematocrit of 49.8 suggesting some degree of hemoconcentration. Is normal 222, 000. PT is 10.7 with an INR of 1.0. D-dimer is less than 0.19. Sodium is 139 with a potassium of 4.1. Cord 105 with a bicarbonate of 24. And a gap is normal at 14.1. BUNs 17 with a creatinine of 1.4. Magnesium is slightly low at 1.7. Liver function is normal. Troponin is less than 0.017. BNP is elevated at 1154 TSH is normal at 1.32. Amylase normal at 75. It therefore appears patient is a candidate for cardioversion. I will discuss this with him. 02/03/18 10:54 entered into discussion about whether the patient would want to pursue cardioversion as he is a candidate. After discussion he decided against pursuing cardioversion at this time. He will therefore be placed on Cardizem CD 180 mg once daily preparation and Xarelto 20 mg once a day. Of note both Eliquis and Xarelto tend to provide potential higher equivalents his of blood thinning with Cardizem on board. 02/03/18 12:15: He remains in atrial fibrillation in the mid 80s off of the diltiazem drip for 45 minutes. He will therefore be discharged home at his request. He has received his first dose of Cardizem CD 180 mg preparation in the ED which will be repeated daily for the next month. I also placed him on Xarelto with the first tablet 20 mg given in the ED. He will have this tablet taken once daily until we identify that he is converted back to sinus rhythm. I' ve advised him to stay on the Cardizem CD preparation long-term in an effort to prevent recurrence of intermittent atrial fibrillation and thus stroke risk. Is to follow-up with his primary care provider on Saturday this week to see her whether or not he is converted to sinus rhythm. 50% of patients usually converted within 2-3 days of starting Cardizem. Departure - Departure Time of Disposition: 11:50 Disposition: Home, Self-Care 01 Condition: Fair Clinical Impression: Paroxysmal atrial fibrillation with RVR Prescriptions: Diltiazem HCl [Cardizem Cd] 180 mg PO DAILY #30 cap.er.24h Rivaroxaban [Xarelto] 20 mg PO DAILY #30 tablet Instructions: Atrial Fibrillation, [id number] Referrals: PCP,None [Primary Care Provider] - Forms: ED Department Discharge Additional Instructions: Evaluation in the emergency room this morning in regards to currents of atrial fibrillation with a rate up to 158/m. Symptoms likely started again on Saturday night. Rate was better control with Cardizem intravenously. Lab work did not show any abnormalities other than that there is some backup of fluid in your lungs from the rapid heart rate over the last 2 days. You elected not to undergo cardioversion at this time and therefore will be treated with Cardizem 180 mg CD preparation once daily to keep her heart rate in control. Due to the risk of stroke as we discussed you need to go on a blood thinner and I would recommend a Xarelto 20 mg once daily. Suggest follow-up with your personal care provider in 5 days time to see if you're still in atrial fibrillation. If the you have converted back to regular rhythm and medications should be continued for another couple of weeks and then if you remain in regular rhythm the Xarelto could be stopped. I would recommend staying on the cart is I'm CD preparation once daily to keep her heart-from going back into atrial fibrillation. Definitely no "chickens feet" to eat in the future. - My Orders Last 24 Hours: My Active Orders 02/03/18 09:00 EKG Documentation Completion [RC] STAT Diltiazem 125 mg Sodium Chloride 0.9% [Normal Saline] 100 ml IV ASDIRECTED Sodium Chloride 0.9% [Normal Saline] 1,000 ml IV ASDIRECTED 02/04/18 10:50 Rivaroxaban [Xarelto] 20 mg PO ONETIME ONE - Assessment/Plan Last 24 Hours: My Active Orders 02/03/18 09:00 EKG Documentation Completion [RC] STAT Diltiazem 125 mg Sodium Chloride 0.9% [Normal Saline] 100 ml IV ASDIRECTED Sodium Chloride 0.9% [Normal Saline] 1,000 ml IV ASDIRECTED 02/04/18 10:50 Rivaroxaban [Xarelto] 20 mg PO ONETIME ONE
[2018-02-03] MEDS ORDERED: Diltiazem 25 MG/5 ML SDV IVPUSH ONE (08:58)
[2018-02-03] MEDS ORDERED: Diltiazem 125 MG in Sodium Chloride 0.9% 100 ML IV SCH (09:00)
[2018-02-03] MEDS ORDERED: Sodium Chloride 0.9% 1,000 ML IV SCH (09:00)
[2018-02-03] MEDS ORDERED: Aspirin 81 MG Tab.Chew PO ONE (09:06)
[2018-02-03] MEDS ORDERED: Diltiazem 180 MG Cap.CD PO ONE (10:49)
--- NOTE | 2018-02-03 11:05 | CR ---
Chest: Portable view of the chest was obtained. Comparison: Prior chest x-ray of 04/23/17. Heart size and mediastinum are normal. Lungs are clear. Bony structures are grossly intact. Impression: 1. Nothing acute is seen on portable chest x-ray. Diagnostic code #1
[2018-02-03 12:05] VITALS: BP 112/82
[2018-02-04] MEDS ORDERED: Rivaroxaban 10 MG Tab PO ONE (10:50)
== END 2018-02-03 12:05 | disposition home or self-care (01) ==
LOC: JD.ED 08:44
DX: I48.91 Unspecified atrial fibrillation (principal); Z79.899 Other long term (current) drug therapy
CPT/HCPCS: 36415; 71045; 80053; 80306; 82150; 82553; 83735; 83880; 84443; 84484; 85025; 85379; 85610; 86140; 93005; 96365; 96366; 96376; 99285; A9270; J3490; J7030; J7040; 93010

== ENCOUNTER 2018-07-12 10:43 | Emergency (ER) | payer OTHER, BC ==
[2018-07-12] MEDS ORDERED: Ketorolac 60 MG/2 ML SDV IM ONE (11:44)
--- NOTE | 2018-07-12 11:52 | EDM.PDOC ---
ED HPI GENERAL MEDICAL PROBLEM - General Chief Complaint: Back Pain or Injury Stated Complaint: BACK PAIN Time Seen by Provider: 07/12/18 11:09 Middle Back Pain Score (Numeric/FACES): 10 - Related Data Allergies Allergy/AdvReac Type Severity Reaction Status Date / Time No Known Allergies Allergy Verified 07/12/18 10:51 Home Meds: Home Meds Omeprazole [priLOSEC OTC] 20 mg PO DAILY 01/15/18 [History] Diltiazem HCl [Cardizem Cd] 180 mg PO DAILY #30 cap.er.24h 02/03/18 [Rx] Rivaroxaban [Xarelto] 20 mg PO DAILY #30 tablet 02/03/18 [Rx] Cephalexin [Keflex] 500 mg PO TID 07/12/18 [History] Cyclobenzaprine [Flexeril] 10 mg PO TID 7 Days #20 tab 07/12/18 [Rx] oxyCODONE HCl/Acetaminophen [Oxycodone-Acetaminophen 5-325] 1 tab PO Q6HR PRN [History] Past Medical History - Past Health History Medical/Surgical History: Denies Medical/Surgical History Cardiovascular History: Reports: Afib Other Cardiovascular History: not being treated for a-fib anymore;off medication about 8 months ago Gastrointestinal History: Reports: GERD - Past Surgical History HEENT Surgical History: Reports: Detached Retina Cardiovascular Surgical History: Reports: None Male Surgical History: Reports: Vasectomy Other Male Surgeries/Procedures: Vaectomy reversal (06/2018) Social & Family History - Family History Family Medical History: Noncontributory - Tobacco Use Smoking Status *Q: Never Smoker Second Hand Smoke Exposure: No - Caffeine Use Caffeine Use: Reports: None Other Caffeine Use: no caffeiine - Alcohol Use Days Per Week of Alcohol Use: 2 Number of Drinks Per Day: 4 Total Drinks Per Week: 8 Date of Last Drink: 07/10/18 - Recreational Drug Use Recreational Drug Use: No - Living Situation & Occupation Living situation: Reports: , with Significant Other, with Family Occupation: Employed ED ROS GENERAL - Review of Systems Review Of Systems: See Below ED EXAM, UPPER BACK/NECK PAIN - Physical Exam Exam: See Below Course - Vital Signs Last Recorded V/S: Last Vital Signs Temp 36.3 C 07/12/18 12:17 Pulse 81 07/12/18 12:17 Resp 20 07/12/18 12:17 BP 111/78 07/12/18 12:17 Pulse Ox 98 07/12/18 10:57 - Orders/Labs/Meds Meds: Medications Discontinued Medications Generic Name Dose Route Start Last Admin Trade Name Adryan PRN Reason Stop Dose Admin Ketorolac Tromethamine 60 mg 07/12/18 11:44 07/12/18 12:04 Toradol IM 07/12/18 11:45 60 mg ONETIME ONE Administration Departure - Departure Time of Disposition: 11:48 Disposition: Home, Self-Care 01 Clinical Impression: Low back pain Qualifiers: Chronicity: acute Back pain laterality: midline Sciatica presence: without sciatica Qualified Code(s): M54.5 - Low back pain - Discharge Information Prescriptions: Cyclobenzaprine [Flexeril] 10 mg PO TID 7 Days #20 tab Instructions: Back Pain, Adult Referrals: Xena Cantor PA [Primary Care Provider] - Forms: ED Department Discharge Additional Instructions: Perform stretching exercises I demonstrated. Try to maintain normal activity, but avoid excess strain/lifting until symptoms subside. Alternate heat and cold, as discussed. Beginning tomorrow, Ibuprofen, 800 mg every 8 hours with food, for 4 days, as discussed. Followup with provider, as discussed.
[2018-07-12 12:17] VITALS: BP 111/78
--- NOTE | 2018-07-12 14:20 | ER ---
CHIEF COMPLAINT: Reason from emergency room visit is low back pain. 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 Approximately 3 days ago, after shutting the fernandez of his semi, he started to experience some tightening in his lower back that increased over the next hour or two. He went to his Workmen's Comp physician at [place] and was that morning. He states that the x-rays obtained were negative as reported to him. He was given a prescription of Tramadol, but he has not filled that at this point. The pain evidently was tolerable enough to the extent that he followed through with an elective vasectomy reversal the following day and for that he received Percocet, which he has taken for pain related to that as well as severe excruciating pain for his lower back. 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 He denies any numbness, weakness, bladder or bowel control problems. The pain does not radiate down either leg and is localized to the midline of the lower back area. It does not seem to increase with Valsalva maneuvers, but even upper extremity twisting or motion seems to irritate it. He has never had any significant back pain issues in the past. PAST MEDICAL HISTORY: Reviewed and noted. ALLERGIES: None to medications. CURRENT MEDICATIONS: Reviewed and noted. REVIEW OF SYSTEMS: All pertinent positives and negatives were as listed in the HPI. PHYSICAL EXAMINATION: GENERAL: He is a pleasant young man in no acute distress. VITAL SIGNS: He is afebrile, heart rate is 95, blood pressure is 103/77, respiratory rate 20. HEENT: Unremarkable. BACK: Reveals some loss of lumbar lordosis. No kyphoscoliosis is noted. He does have some mild tenderness to palpation of the perispinal muscles low near the sacroiliac area, more obvious on the left than on the right. There is some mild discomfort to percussion over the spinous processes, but this was diffuse throughout the lumbar spine area. Deep tendon reflexes were brisk and symmetrical bilaterally including ankle jerks and patella jerks. Muscle strength, bulk, and tone are symmetrical and normal in both lower extremities including plantar flexion, dorsi flexion and flexors and extensors at the knee. The latter was limited somewhat because of the pain in the lower back area when he attempted to do this. Sensation to cool touch is intact and symmetrical bilaterally with no obvious deficits. Straight leg raising is negative. Internal and external rotation produced some pain in the lower back area. IMPRESSION: Lumbosacral strain or low back pain. PLAN: I described to the patient and his the fact that the natural history of this is such that it is self-limiting. Based on his findings and his history, I explained to them why I do not feel any further x-rays, MRIs, etc., are indicated at this juncture. I discussed the need to exercise caution particularly with his tramadol and hydrocodone. He understands this, and I am impressed that he is very careful and judicious with the use of these medications. I did illustrate to them a couple of important stretching exercises that can be done and directed them to a number of resources where they can get other ideas for back stretching exercises. He recognized that this will be difficult at first, but it time it will help things a great deal. I also gave him Toradol 50 mg IM x1 and explained that he should not take any nonsteroidal anti-inflammatory drugs for 24 hours after this. He was given a prescription of Flexeril 10 mg dispensed #20, 1 q.8 hours p.r.n. for muscle spasms. He understands that this only works in a small percentage of people, but I think it is worth a try. I gave him limited prescription with no refills. I also discussed the importance of alternating head and cold, and the maintenance of normal activity as much as possible. This should a self-limiting problem. He understands that should he experience any unusual muscle weakness, numbness, bowl or bowel control problems that he should be seen promptly. He does have an appointment with his provider in 4 days' time. All questions were answered, they understand and agree. MECCA /[id number]
== END 2018-07-12 12:13 | disposition home or self-care (01) ==
LOC: JD.ED 10:43
DX: M54.5 Low back pain (principal); Z79.899 Other long term (current) drug therapy
CPT/HCPCS: 96372; 99283; J1885

== ENCOUNTER 2019-10-26 06:54 | Day surgery (SDC) | payer BC ==
[2019-10-26] MEDS ORDERED: Sodium Chloride 0.9% 10 ML Syringe FLUSH PRN (07:17)
[2019-10-26] MEDS ORDERED: Lidocaine 1%/Sod Bicarbonate in NS 8.4% 1 ML Syringe IDERM PRN (07:17)
[2019-10-26] MEDS ORDERED: Sodium Chloride 0.9% 1,000 ML IV SCH (07:30)
[2019-10-26] MEDS ORDERED: Midazolam 1 MG/ML 2 ML SDV ONE (07:31)
[2019-10-26] MEDS ORDERED: Propofol 200 MG/20 ML SDV ONE ×2 (07:31→07:32)
[2019-10-26] MEDS ORDERED: fentaNYL 100 MCG/2 ML SDV ONE (07:31)
--- NOTE | 2019-10-26 07:34 | PCM.PREANE ---
Preanesthetic Assessment - Anesthesia/Transfusion/Family Hx Anesthesia History: Prior Anesthesia Without Reaction Family History of Anesthesia Reaction: No Transfusion History: No Prior Transfusion(s) - Review of Systems General: No Symptoms, Other (drinks at least 14 beers/ week plus hard liquor as well, stage 3 kidney disease, being followed by nephrology, hypercalcemia) Pulmonary: No Symptoms Cardiovascular: Palpitations, Other (hx of paraxysmal afib, ablation 11/2018, on meds to control. pt states has had more episodes of palpations, cardiology saw and cleared for procedure today) Gastrointestinal: Other (GERD) Neurological: Other (back pain, heard a pop this am in back) - Physical Assessment NPO Status Date: 10/25/19 NPO Status Time: 20:00 Weight: 112.4 kg ASA Class: 3 Mental Status: Alert & Oriented x3 Airway Class: Mallampati = 2 Dentition: Reports: Normal Dentition Thyro-Mental Finger Breadths: 3 Mouth Opening Finger Breadths: 3 ROM/Head Extension: Full Lungs: Clear to Auscultation, Normal Respiratory Effort Cardiovascular: Regular Rate, Regular Rhythm - Imaging/EKG Impressions: 10-05-2019 EKG demonstrated NSR - Allergies Allergies/Adverse Reactions: Allergies Allergy/AdvReac Type Severity Reaction Status Date / Time No Known Allergies Allergy Verified 10/23/19 10:54 - Blood Blood Available: No Product(s) Available: None - Acknowledgements Anesthesia Type Planned: MAC Pt an Appropriate Candidate for the Planned Anesthesia: Yes Alternatives and Risks of Anesthesia Discussed w Pt/Guardian: Yes Pt/Guardian Understands and Agrees with Anesthesia Plan: Yes PreAnesthesia Questionnaire - Past Health History Medical/Surgical History: Denies Medical/Surgical History Cardiovascular History: Reports: Afib Other Cardiovascular History: hypotension, pericarditis, albation Respiratory History: Reports: None Gastrointestinal History: Reports: GERD Other Gastrointestinal History: esophagitis Genitourinary History: Reports: Other (See Below) Other Genitourinary History: elevated creatinine, flank pain, CKDIII, vasectomy with reversal THEATRICAL VARIETY AGENT History: Reports: None Musculoskeletal History: Reports: None Neurological History: Reports: None Psychiatric History: Reports: Addiction Endocrine/Metabolic History: Reports: None Hematologic History: Reports: None Immunologic History: Reports: None Oncologic (Cancer) History: Reports: None Dermatologic History: Reports: None - Past Surgical History Head Surgeries/Procedures: Reports: None HEENT Surgical History: Reports: Detached Retina, Eye Surgery Cardiovascular Surgical History: Reports: Cardiac Ablation Respiratory Surgical History: Reports: None GI Surgical History: Reports: None Male Surgical History: Reports: Vasectomy Other Male Surgeries/Procedures: Vaectomy reversal (06/2018) Endocrine Surgical History: Reports: None Neurological Surgical History: Reports: None Musculoskeletal Surgical History: Reports: None Oncologic Surgical History: Reports: None Dermatological Surgical History: Reports: None - SUBSTANCE USE Smoking Status *Q: Never Smoker Days Per Week of Alcohol Use: 7 Number of Drinks Per Day: 2 Total Drinks Per Week: 14 Recreational Drug Use History: No - HOME MEDS Home Medications: Home Meds Calcium Carb/Magnesium Hydrox [Rolaids Chewable Tablet] 1 - 2 tab PO Q4H PRN 05/06 [History] Diltiazem [Cardizem CD] 120 mg PO DAILY PRN 10/23/19 [History] Flecainide Acetate 100 mg PO BID 10/23/19 [History] Melatonin 10 mg PO DAILY 10/23/19 [History] Omeprazole Magnesium [Prilosec Otc] 40 mg PO DAILY 10/23/19 [History] Sertraline HCl 50 mg PO DAILY 10/23/19 [History] hydrOXYzine pamoate [Hydroxyzine Pamoate] 25 mg PO BEDTIME PRN 10/23/19 [History ] - CURRENT (IN HOUSE) MEDS Current Meds: Current Medications Sodium Chloride (Normal Saline) 1,000 mls @ 125 mls/hr IV ASDIRECTED JAIME Stop: 10/26/19 23:00 Lidocaine/Sodium Bicarbonate (Buffered Lidocaine 1% In Ns 8.4%) 0.25 ml IDERM ONETIME PRN PRN Reason: Prior to IV Start Stop: 10/26/19 18:00 Sodium Chloride (Saline Flush) 10 ml FLUSH ASDIRECTED PRN PRN Reason: Keep Vein Open Stop: 10/26/19 23:00
--- NOTE | 2019-10-26 08:36 | PCM48HPAN ---
Post Anesthesia Note - EVALUATION WITHIN 48HRS OF ANESTHETIC Vital Signs in Normal Range: Yes Patient Participated in Evaluation: Yes Respiratory Function Stable: Yes Airway Patent: Yes Cardiovascular Function Stable: Yes Hydration Status Stable: Yes Pain Control Satisfactory: Yes Nausea and Vomiting Control Satisfactory: Yes Mental Status Recovered: Yes Vital Signs: Last Vital Signs Temp 36.9 C 10/26/19 07:16 Pulse 73 10/26/19 07:16 Resp 16 10/26/19 07:16 BP 126/77 10/26/19 07:16 Pulse Ox 95 10/26/19 07:16
[2019-10-26 09:03] VITALS: BP 109/65; PULSE 65
--- NOTE | 2019-10-26 10:07 | PROC ---
DATE OF OPERATION: 10/26/2019 SURGEON: Erin Piper MD PREOPERATIVE DIAGNOSIS: 1. Long-standing gastroesophageal reflux disease. 2. Family history of esophageal cancer 3. Epigastric tenderness POSTOPERATIVE DIAGNOSES: 1. Gastritis. 2. Esophagitis. 3. Sliding hiatal hernia. OPERATION PERFORMED: Esophagogastroduodenoscopy with biopsies. COMPLICATIONS: None. ESTIMATED BLOOD LOSS: Minimal. INDICATION AND CONSENT: Mr. Arias is a 44-year-old male who has long-standing gastroesophageal reflux disease and epigastric pain. The patient has been on PPIs for several years. Also, the patient has a history of esophageal adenocarcinoma in his father. The patient was seen in clinic for his GERD symptoms, which are partly controlled with PPIs and due to longstanding disease, pain and history of esophageal cancer, he was offered a diagnostic esophagogastroduodenoscopy. The patient never had EGD in the past. The risks, benefits, and alternatives to this procedure were discussed with the patient and informed consent was obtained. DETAILS OF PROCEDURE: The patient was taken to the operating room and placed in left lateral decubitus position. Following induction of monitored anesthesia care, a time-out was performed. Then, the EGD scope was advanced from the mouth all the way to the second portion of duodenum. This duodenal portion was photographed. Then, the scope was slowly withdrawn into the antrum. The antrum was erythematous signifying gastritis. Biopsies were taken for histology as well as H pylori with cold forceps. Then, there was a moderate amount of food residue within the stomach. Upon retroflexion views, the food was obstructing the hiatus. Therefore, this was not clearly visible. The rest of the stomach appeared to be normal with mild patchy gastritis indicated by small patchy superficial erythema. Then, the scope was withdrawn back into the GE junction. There was clearly a sliding hiatal hernia because portion of the stomach was herniating into the chest. The distal esophagus was erythematous, and there was at least [id number] esophagitis at this level. The Z-line was irregular. Photos were taken. Therefore, biopsies of the GE junction as well as the distal esophagus were taken for histologic examination. The GE junction mucosa appeared otherwise normal. Once this was done, the scope was once again advanced back into the stomach, air was suctioned out, and the biopsy areas were observed. They appeared hemostatic. The scope was withdrawn slowly observing the rest of the esophagus, which appeared to be normal. Of note, there was also a small amount of food residue in the distal esophagus. The scope was slowly withdrawn, and this concluded the examination. The patient was recommended to continue his GERD diet as well as PPIs. The patient will follow up in clinic in 2 weeks for discussion of the pathologic results and further followup. MECCA /[id number] NYDIA
== END 2019-10-26 09:10 | disposition home or self-care (01) ==
LOC: JD.SDS 06:54
PROVIDERS: ATTEND Surgery
DX: K21.0 Gastro-esophageal reflux disease with esophagitis (principal); K29.50 Unspecified chronic gastritis without bleeding; K44.9 Diaphragmatic hernia without obstruction or gangrene; N18.3 Chronic kidney disease, stage 3 (moderate); I48.0 Paroxysmal atrial fibrillation; Z85.01 Personal history of malignant neoplasm of esophagus; Z79.899 Other long term (current) drug therapy
CPT/HCPCS: 43239; J2250; J2704; J3010; J7030; 00731

== ENCOUNTER 2019-12-26 13:59 | Emergency (ER) | payer BC ==
[2019-12-26] MEDS ORDERED: Sodium Chloride 0.9% 10 ML Syringe FLUSH PRN (14:11)
[2019-12-26] MEDS ORDERED: LORazepam 2 MG/ML SDV IVPUSH ONE (14:19)
--- NOTE | 2019-12-26 14:31 | EDM.PDOC ---
ED HPI GENERAL MEDICAL PROBLEM - General Chief Complaint: Cardiovascular Problem Stated Complaint: AFIB Time Seen by Provider: 12/26/19 14:11 Source of Information: Reports: Patient, Family (), Old Records, RN Notes Reviewed History Limitations: Reports: No Limitations - History of Present Illness INITIAL COMMENTS - FREE TEXT/NARRATIVE: Patient is a 44-year-old male who presents to the ED for evaluation of his atrial fibrillation. Patient notes he has a history of atrial fibrillation. He has had cardioversions and an ablation done in the past. He notes that he feels as if he is been in A. fib since about 1:30 PM today. He took his Cardizem roughly 40 minutes ago, he states that he takes Cardizem 2 times a day. He is also on flecainide twice daily as well. His jacquard card lacer is Dr. Benavidez. He is in between primary care providers as his previous one left her practice. When the symptoms started, he did have some chest pain, dizziness and lightheadedness, but he states after taking his Cardizem, everything is getting a little bit better. Patient notes that he has been having some increased anxiety this morning, as he had a bad night last night. He does state that he had a couple beers as well. Patient notes that he is not on blood thinners currently, as he was taken off of them after his ablation, as he was not documented to be in atrial fibrillation any longer. He states he has 6- month supply of this medication at home. Left Chest Pain Score (Numeric/FACES): 3 - Related Data Allergies Allergy/AdvReac Type Severity Reaction Status Date / Time No Known Allergies Allergy Verified 10/23/19 10:54 Home Meds: Home Meds Calcium Carb/Magnesium Hydrox [Rolaids Chewable Tablet] 1 - 2 tab PO Q4H PRN 05/06 [History] Diltiazem [Cardizem CD] 120 mg PO DAILY PRN 10/23/19 [History] Flecainide Acetate 100 mg PO BID 10/23/19 [History] Melatonin 10 mg PO DAILY 10/23/19 [History] Sertraline HCl 50 mg PO DAILY 10/23/19 [History] hydrOXYzine pamoate [Hydroxyzine Pamoate] 25 mg PO BEDTIME PRN 10/23/19 [History ] Omeprazole Magnesium [Prilosec] 40 mg PO DAILY 12/26/19 [History] Past Medical History Cardiovascular History: Reports: Afib Other Cardiovascular History: hypotension, pericarditis Gastrointestinal History: Reports: GERD Other Gastrointestinal History: esophagitis Genitourinary History: Reports: Other (See Below) Other Genitourinary History: elevated creatinine, flank pain, CKDIII, vasectomy with reversal Psychiatric History: Reports: Addiction - Past Surgical History HEENT Surgical History: Reports: Detached Retina, Eye Surgery Cardiovascular Surgical History: Reports: Cardiac Ablation Male Surgical History: Reports: Vasectomy Other Male Surgeries/Procedures: Vaectomy reversal (06/2018) Social & Family History - Family History Family Medical History: Noncontributory - Caffeine Use Caffeine Use: Reports: Energy Drinks - Living Situation & Occupation Living situation: Reports: , with Significant Other, with Family Occupation: Employed ED ROS GENERAL - Review of Systems Review Of Systems: See Below Constitutional: Denies: Fever, Chills Respiratory: Denies: Shortness of Breath Cardiovascular: Reports: Chest Pain, Lightheadedness, Palpitations (felt he was in A-fib). Denies: Blood Pressure Problem, Edema GI/Abdominal: Denies: Abdominal Pain, Nausea, Vomiting Neurological: Denies: Headache Psychiatric: Reports: Anxiety ED EXAM, GENERAL - Physical Exam Exam: See Below Exam Limited By: No Limitations General Appearance: Alert, WD/WN, Anxious (pt is very visibly anxious at today' s visit.) Eye Exam: Bilateral Eye: EOMI, Normal Inspection, PERRL Ears: Normal External Exam Nose: Normal Inspection Throat/Mouth: Normal Inspection, Normal Lips, Normal Teeth, Normal Gums, Normal Oropharynx, Normal Voice, No Airway Compromise Head: Atraumatic, Normocephalic Neck: Normal Inspection Respiratory/Chest: No Respiratory Distress, Lungs Clear, Normal Breath Sounds, No Accessory Muscle Use, Chest Non-Tender Cardiovascular: Normal Peripheral Pulses, No Murmur, Other (regularly irregular rhythm) Peripheral Pulses: 3+: Radial (L), Radial (R) GI/Abdominal: Normal Bowel Sounds, Soft, Non-Tender, No Distention, No Mass Extremities: Normal Inspection, Normal Capillary Refill Neurological: Alert, Oriented, Normal Cognition, No Motor/Sensory Deficits Psychiatric: Anxious Skin Exam: Warm, Dry, Intact, Normal Color, No Rash EKG INTERPRETATION EKG Date: 12/26/19 Time: 13:58 Rhythm: A-Fib Rate (Beats/Min): 118 [place]: Normal P-Wave: Present QRS: Normal ST-T: Normal QT: Normal EKG Interpretation Comments: No obvious ST changes. Nonspecific T abnormalities in inferior leads. This was reviewed by Dr. Gar and myself. Course - Vital Signs Last Recorded V/S: Last Vital Signs Temp 97.9 F 12/26/19 14:13 Pulse 92 12/26/19 14:13 Resp 15 12/26/19 14:13 BP 157/84 H 12/26/19 14:13 Pulse Ox 97 12/26/19 14:13 - Orders/Labs/Meds Orders: Active Orders 24 hr Category Date Time Status EKG Documentation Completion [RC] STAT Care 12/26/19 14:11 Ordered EKG Documentation Completion [RC] STAT Care 12/26/19 14:53 Ordered Peripheral IV Care [RC] . DIRECTED Care 12/26/19 14:12 Ordered Sodium Chloride 0.9% [Saline Flush] Med 12/26/19 14:11 Ordered 10 ml FLUSH ASDIRECTED PRN Peripheral IV Insertion Adult [OM.PC] Stat Oth 12/26/19 14:11 Ordered Medication Orders Sodium Chloride (Saline Flush) 10 ml FLUSH ASDIRECTED PRN PRN Reason: Keep Vein Open Last Admin: 12/26/19 14:28 Dose: 10 ml Labs: Laboratory Tests 12/26/19 12/26/19 12/26/19 Range/Units 14:20 14:20 14:20 WBC 9.19 H (4.23-9.07) K/mm3 RBC 4.89 (4.63-6.08) M/mm3 Hgb 14.7 (13.7-17.5) gm/dl Hct 42.8 (40.1-51.0) % MCV 87.5 (79.0-92.2) fl MCH 30.1 (25.7-32.2) pg MCHC 34.3 (32.2-35.5) g/dl RDW Std Deviation 43.0 (35.1-43.9) fL Plt Count 261 (163-337) K/mm3 MPV 8.4 L (9.4-12.3) fl Neut % (Auto) 55.9 (34.0-67.9) % Lymph % (Auto) 30.8 (21.8-53.1) % [place] % (Auto) 10.9 (5.3-12.2) % Eos % (Auto) 1.6 (0.8-7.0) Baso % (Auto) 0.4 (0.1-1.2) % Neut # (Auto) 5.13 (1.78-5.38) K/mm3 Lymph # (Auto) 2.83 (1.32-3.57) K/mm3 [place] # (Auto) 1.00 H (0.30-0.82) K/mm3 Eos # (Auto) 0.15 (0.04-0.54) K/mm3 Baso # (Auto) 0.04 (0.01-0.08) K/mm3 PT 11.1 (9.7-12.0) SECONDS INR 1.02 APTT 24 (22-31) SECONDS Sodium 138 (136-145) mEq/L Potassium 3.1 L (3.5-5.1) mEq/L Chloride 100 (98-107) mEq/L Carbon Dioxide 19 L (21-32) mEq/L Anion Gap 22.1 H (5-15) BUN 16 (7-18) mg/dL Creatinine 1.3 (0.7-1.3) mg/dL Est Cr Clr Drug Dosing 81.95 mL/min Estimated GFR (MDRD) 60 (>60) mL/min BUN/Creatinine Ratio 12.3 L (14-18) Glucose 150 H (74-106) mg/dL Calcium 9.1 (8.5-10.1) mg/dL Magnesium 1.9 (1.8-2.4) mg/dl Total Bilirubin 0.3 (0.2-1.0) mg/dL AST 25 (15-37) U/L ALT 45 (16-63) U/L Alkaline Phosphatase 120 H (46-116) U/L Troponin I < 0.017 (0.00-0.056) ng/mL Total Protein 8.2 (6.4-8.2) g/dl Albumin 3.8 (3.4-5.0) g/dl Globulin 4.4 gm/dL Albumin/Globulin Ratio 0.9 L (1-2) Meds: Medications Generic Name Dose Route Start Last Admin Trade Name Adryan PRN Reason Stop Dose Admin Sodium Chloride 10 ml 12/26/19 14:11 12/26/19 14:28 Saline Flush FLUSH 10 ml ASDIRECTED PRN Administration Keep Vein Open Discontinued Medications Generic Name Dose Route Start Last Admin Trade Name Adryan PRN Reason Stop Dose Admin Lorazepam 1 mg 12/26/19 14:19 12/26/19 14:28 Ativan IVPUSH 12/26/19 14:20 1 mg ONETIME ONE Administration - Re-Assessments/Exams Free Text/Narrative Re-Assessment/Exam: 12/26/19 14:32 Patient presents to the ED for the evaluation of his atrial fibrillation. Have ordered some labs to be obtained, EKG was done at time of triage and did demonstrate atrial fibrillation at a rate of 118 caught on initial EKG. While monitoring him in the room his rate has been in the low 80s to high 90s while being in the ER. There is no obvious ST ischemia or abnormalities noted on the EKG. Patient will have to restart his Xarelto, due to being in atrial fibrillation again, he states that he has a 6 month supply at home and will restart his previous dose. 12/26/19 15:10 Patient's labs are back, demonstrate a negative troponin, unremarkable CBC, his anion gap is elevated at 22, while his labs were resulting, we did redo an EKG and it shows that he did convert to a normal sinus rhythm. At this time patient will be discharged home with general recommendations and have a follow- up with his jacquard card lacer sometime soon if possible. Departure - Departure Time of Disposition: 15:12 Disposition: Home, Self-Care 01 Condition: Fair Clinical Impression: Atrial fibrillation by electrocardiogram Instructions: Atrial Fibrillation, [id number], Preventing Atrial Fibrillation -Related Stroke Referrals: PCP,Unknown [Ordering Only Provider] - Forms: ED Department Discharge Additional Instructions: You were evaluated in the ER today regarding your atrial fibrillation. You had some labs obtained, and these demonstrated no emergent considerations that needed to be treated at today's visit. While in the ER, you did convert to normal sinus rhythm. Please try to take your Cardizem at normal scheduled times, to help regulate your heart rhythm. You will need to be placed on Xarelto again, please take your previous prescription at the previous dosing. Recommend you follow-up with your jacquard card lacer sometime soon for further management. Please try to refrain from alcohol use, as this might be a trigger to atrial fibrillation. Please return to the ER at any time however if your symptoms change or worsen. Sepsis Event Note - Evaluation Sepsis Screening Result: No Definite Risk - Focused Exam Vital Signs: Vital Signs Temp Pulse Resp BP Pulse Ox 12/26/19 14:13 97.9 F 92 15 157/84 H 97 Date Exam was Performed: 12/26/19 Time Exam was Performed: 15:10 - My Orders Last 24 Hours: My Active Orders 12/26/19 14:11 EKG Documentation Completion [RC] STAT Sodium Chloride 0.9% [Saline Flush] 10 ml FLUSH ASDIRECTED PRN Peripheral IV Insertion Adult [OM.PC] Stat 12/26/19 14:12 Peripheral IV Care [RC] . DIRECTED 12/26/19 14:53 EKG Documentation Completion [RC] STAT - Assessment/Plan Last 24 Hours: My Active Orders 12/26/19 14:11 EKG Documentation Completion [RC] STAT Sodium Chloride 0.9% [Saline Flush] 10 ml FLUSH ASDIRECTED PRN Peripheral IV Insertion Adult [OM.PC] Stat 12/26/19 14:12 Peripheral IV Care [RC] . DIRECTED 12/26/19 14:53 EKG Documentation Completion [RC] STAT
--- NOTE | 2019-12-26 14:50 | CR ---
Chest: Portable view of the chest was obtained. Comparison: Prior chest x-ray of 10/17/80. Heart size and mediastinum are normal. Lungs are clear with no acute parenchymal change. Bony structures appear unremarkable. Impression: 1. Nothing acute is appreciated on portable chest x-ray. Diagnostic code #1 This report was dictated in Mountain Standard Time
[2019-12-26 15:45] VITALS: BP 112/68; PULSE 90
== END 2019-12-26 15:30 | disposition home or self-care (01) ==
LOC: SUPCPDRO 13:59 → JD.ED 13:59
DX: I48.91 Unspecified atrial fibrillation (principal); K21.9 Gastro-esophageal reflux disease without esophagitis; N18.3 Chronic kidney disease, stage 3 (moderate); Z79.899 Other long term (current) drug therapy
CPT/HCPCS: 36415; 71045; 80053; 83735; 84484; 85025; 85610; 85730; 93005; 96374; 99285; J2060; 93010; 99284

== ENCOUNTER 2020-02-08 17:34 | Emergency (ER) | payer BC ==
[2020-02-08 17:48] VITALS: BP 131/85; PULSE 86
--- NOTE | 2020-02-08 18:15 | EDM.PDOC ---
ED HPI GENERAL MEDICAL PROBLEM - General Chief Complaint: Cardiovascular Problem Stated Complaint: AFIB Time Seen by Provider: 02/08/20 17:55 - History of Present Illness INITIAL COMMENTS - FREE TEXT/NARRATIVE: 44-year-old male presents the emergency room with a history of paroxysmal atrial fibrillation and he is having a tachydysrhythmia that he believes is atrial fibrillation. Patient had about 1 and half hour history of fast heart rhythm in the 120s 130s that acted very much like his A. fib that he jumps into periodically. He is taking his flecainide 1-1/2 tablets once a day. He has not taken his Eliquis. He is not having chest pain chest pressure at this point the patient came in to document his A. fib but now he is out of it when he was brought back to the room he spontaneously converted into sinus rhythm with a normal rate. - Related Data Allergies Allergy/AdvReac Type Severity Reaction Status Date / Time Hay Fever Allergy Itching Uncoded 02/08/20 17:49 Home Meds: Home Meds Calcium Carb/Magnesium Hydrox [Rolaids Chewable Tablet] 1 - 2 tab PO Q4H PRN 05/06 [History] Diltiazem [Cardizem CD] 180 mg PO BID PRN 10/23/19 [History] Flecainide Acetate 100 mg PO BID 10/23/19 [History] Melatonin 5 mg PO DAILY 10/23/19 [History] Sertraline HCl 50 mg PO DAILY 10/23/19 [History] hydrOXYzine pamoate [Hydroxyzine Pamoate] 25 mg PO BEDTIME PRN 10/23/19 [History ] Omeprazole Magnesium [Prilosec] 40 mg PO DAILY 12/26/19 [History] Past Medical History Cardiovascular History: Reports: Afib Other Cardiovascular History: hypotension, pericarditis Respiratory History: Reports: None Gastrointestinal History: Reports: None Other Gastrointestinal History: esophagitis Genitourinary History: Reports: Other (See Below) Other Genitourinary History: elevated creatinine, flank pain, CKDIII, vasectomy with reversal Musculoskeletal History: Reports: None Neurological History: Reports: None Psychiatric History: Reports: Addiction Endocrine/Metabolic History: Reports: Obesity/BMI 30+ Hematologic History: Reports: None Immunologic History: Reports: None Oncologic (Cancer) History: Reports: None Dermatologic History: Reports: None - Infectious Disease History Infectious Disease History: Reports: None - Past Surgical History HEENT Surgical History: Reports: Detached Retina, Eye Surgery Cardiovascular Surgical History: Reports: Cardiac Ablation Male Surgical History: Reports: Vasectomy Other Male Surgeries/Procedures: Vaectomy reversal (06/2018) Social & Family History - Family History Family Medical History: Noncontributory - Tobacco Use Smoking Status *Q: Never Smoker - Caffeine Use Caffeine Use: Reports: Energy Drinks - Recreational Drug Use Recreational Drug Use: No - Living Situation & Occupation Living situation: Reports: , with Significant Other, with Family Occupation: Employed ED ROS GENERAL - Review of Systems Review Of Systems: See Below Constitutional: Reports: No Symptoms Respiratory: Reports: No Symptoms Cardiovascular: Reports: Palpitations. Denies: Chest Pain ED EXAM, GENERAL - Physical Exam Exam: See Below Exam Limited By: No Limitations General Appearance: Alert, No Apparent Distress Respiratory/Chest: No Respiratory Distress, Lungs Clear, Normal Breath Sounds Cardiovascular: Regular Rate, Rhythm, No Edema, No Murmur Course - Vital Signs Last Recorded V/S: Last Vital Signs Temp 36.6 C 02/08/20 17:45 Pulse 86 02/08/20 17:45 Resp 18 02/08/20 17:45 BP 131/85 02/08/20 17:45 Pulse Ox 96 02/08/20 17:45 - Orders/Labs/Meds Orders: Active Orders 24 hr Category Date Time Status EKG Documentation Completion [RC] ASDIRECTED Care 02/08/20 17:53 Active EKG 12 Lead [EK] Stat Ther 02/08/20 17:53 Ordered - Re-Assessments/Exams Free Text/Narrative Re-Assessment/Exam: 02/08/20 18:17 Discussed with the patient the importance of twice a day dosing of the flecainide. We will cancel the CT as it sounds like he is already got adequate documentation for his next ablation. Really encouraged him to restart his Eliquis. Also discussed the kardia for his cell phone. I was going to check an EKG but the patient declined this. Departure - Departure Time of Disposition: 18:19 Disposition: Home, Self-Care 01 Clinical Impression: Paroxysmal A-fib Referrals: Kay Vogel MD [Primary Care Provider] - Additional Instructions: Turn to the emergency room with any questions problems or worsening symptoms. Consider taking your flecainide twice a day discussed with your bibliographic services specialist of going to 100 mg twice a day instead of taking 1-1/2 tablets once a day. Restart your Eliquis, or your blood thinner. Investigate the [employer] song for your phone. Sepsis Event Note - Evaluation Sepsis Screening Result: No Definite Risk - Focused Exam Vital Signs: Vital Signs Temp Pulse Resp BP Pulse Ox 02/08/20 17:45 36.6 C 86 18 131/85 96 Date Exam was Performed: 02/08/20 Time Exam was Performed: 17:55 - My Orders Last 24 Hours: My Active Orders 02/08/20 17:53 EKG Documentation Completion [RC] ASDIRECTED - Assessment/Plan Last 24 Hours: My Active Orders 02/08/20 17:53 EKG Documentation Completion [RC] ASDIRECTED
== END 2020-02-08 18:25 | disposition home or self-care (01) ==
LOC: JD.ED 17:34
DX: I48.0 Paroxysmal atrial fibrillation (principal); E66.9 Obesity, unspecified; Z68.33 Body mass index [BMI] 33.0-33.9, adult; Z79.899 Other long term (current) drug therapy
CPT/HCPCS: 99283; 99284-25

== ENCOUNTER 2020-11-21 15:46 | Emergency (ER) | payer BC ==
[2020-11-21 15:59] VITALS: BP 161/108; PULSE 137
--- NOTE | 2020-11-21 16:15 | EDM.PDOC ---
<Mireya Aldridge - Last Filed: 11/21/20 16:08> ED HPI GENERAL MEDICAL PROBLEM - General Chief Complaint: Cardiovascular Problem Stated Complaint: A FIB Time Seen by Provider: 11/21/20 15:55 Source of Information: Reports: Patient History Limitations: Reports: No Limitations - History of Present Illness INITIAL COMMENTS - FREE TEXT/NARRATIVE: Elier is a 45 year old male presenting to the ER with the complaint of afib. He states it started 45 minutes ago when he was playing darts. He states he felt his heart "flip out of rhythm" and decided to come in today so we could catch it. He is scheduled to have a CT on the and a scheduled ablation on February 09. He says he is going to wear a 14 day event monitor to catch if he has a fib or a flutter, but has not gotten it in the mail yet. He endorses rest and relaxation makes his rhythm go back to sinus rhythm. He does has a history cardiac ablation two years ago. He denies any chest pain, shortness of breath, dizziness, nausea or vomiting. Onset: Today, Sudden Onset Date: 11/21/20 Onset Time: 03:45 - Related Data Allergies Allergy/AdvReac Type Severity Reaction Status Date / Time Hay Fever Allergy Itching Uncoded 11/21/20 15:59 Home Meds: Home Meds Diltiazem [Cardizem CD] 0 mg PO DAILY 10/23/19 [History] Flecainide Acetate 0 mg PO DAILY 10/23/19 [History] Melatonin 5 mg PO DAILY 10/23/19 [History] hydrOXYzine pamoate [Hydroxyzine Pamoate] 25 mg PO BEDTIME PRN 10/23/19 [History] Omeprazole Magnesium [Prilosec] 40 mg PO DAILY 12/26/19 [History] Aspirin [Aspirin EC] 81 mg PO DAILY 11/21/20 [History] Past Medical History Cardiovascular History: Reports: Afib Other Cardiovascular History: hypotension, pericarditis Respiratory History: Reports: None Gastrointestinal History: Reports: None Other Gastrointestinal History: esophagitis Genitourinary History: Reports: Other (See Below) Other Genitourinary History: elevated creatinine, flank pain, CKDIII, vasectomy with reversal Musculoskeletal History: Reports: None Neurological History: Reports: None Psychiatric History: Reports: Addiction Endocrine/Metabolic History: Reports: Obesity/BMI 30+ Hematologic History: Reports: None Immunologic History: Reports: None Oncologic (Cancer) History: Reports: None Dermatologic History: Reports: None - Infectious Disease History Infectious Disease History: Reports: None - Past Surgical History HEENT Surgical History: Reports: Detached Retina, Eye Surgery Cardiovascular Surgical History: Reports: Cardiac Ablation Male Surgical History: Reports: Vasectomy Other Male Surgeries/Procedures: Vaectomy reversal (06/2018) Social & Family History - Family History Family Medical History: No Pertinent Family History - Tobacco Use Tobacco Use Status *Q: Never Tobacco User - Caffeine Use Caffeine Use: Reports: Energy Drinks - Recreational Drug Use Recreational Drug Use: No - Living Situation & Occupation Living situation: Reports: , with Significant Other, with Family Occupation: Employed ED ROS GENERAL - Review of Systems Review Of Systems: Comprehensive ROS is negative, except as noted in HPI. ED EXAM, GENERAL - Physical Exam Exam: See Below Exam Limited By: No Limitations General Appearance: Alert, WD/WN, No Apparent Distress Respiratory/Chest: No Respiratory Distress, Lungs Clear, Normal Breath Sounds, No Accessory Muscle Use, Chest Non-Tender Cardiovascular: Normal Peripheral Pulses, Regular Rate, Rhythm, No Edema, No Gallop, No JVD, No Murmur, No Rub GI/Abdominal: Normal Bowel Sounds, Soft, Non-Tender, No Organomegaly Extremities: Normal Inspection, Normal Range of Motion, Non-Tender, Normal Capillary Refill, No Pedal Edema Neurological: Alert, Oriented, CN II-XII Intact, Normal Cognition, Normal Gait, Normal Reflexes, No Motor/Sensory Deficits Psychiatric: Normal Affect, Normal Mood Skin Exam: Warm, Dry, Intact, Normal Color, No Rash Lymphatic: No Adenopathy #1 Interpretation EKG Date: 11/21/20 Rhythm: A-Fib Rate (Beats/Min): 132 [place]: RAD-Right [place] Deviation P-Wave: Absent QRS: Normal ST-T: Depressed (inferior leads) QT: Normal AK/PQ Interval: 101 Departure - Departure Disposition: Home, Self-Care 01 Clinical Impression: Paroxysmal A-fib Referrals: Kay Vogel NP [Primary Care Provider] - Forms: ED Department Discharge Additional Instructions: You went into Atrial fibrillation here. You are out of it now. Take your medication as prescribed and follow up with your doctor as scheduled. Sepsis Event Note (ED) - Evaluation Sepsis Screening Result: No Definite Risk <Kuylen,Abhishek - Last Filed: 11/21/20 16:26> ED ROS GENERAL - Review of Systems Review Of Systems: See Below ED EXAM, GENERAL - Physical Exam Exam: See Below Course - Vital Signs Last Recorded V/S: Last Vital Signs Temp 97.8 F 11/21/20 15:54 Pulse 137 H 11/21/20 15:54 Resp 20 11/21/20 15:54 BP 161/108 H 11/21/20 15:54 Pulse Ox 94 L 11/21/20 15:54 - Re-Assessments/Exams Free Text/Narrative Re-Assessment/Exam: 11/21/20 16:23 I examined the patient myself and I agree with Mireya's assessment and plan. I ordered an EKG and we did catch that he was in A-fib at a rate of 132. He quickly converted out of it. He has a history of A-fib with ablation before and he is going to have one again because he keeps going back into A-fib. He does not want anything else done. Departure - Departure Time of Disposition: 16:30 Condition: Good Sepsis Event Note (ED) - Focused Exam Vital Signs: Vital Signs Temp Pulse Resp BP Pulse Ox 11/21/20 15:54 97.8 F 137 H 20 161/108 H 94 L
== END 2020-11-21 16:45 | disposition home or self-care (01) ==
LOC: JD.ED 15:46
DX: I48.0 Paroxysmal atrial fibrillation (principal); N18.30 Chronic kidney disease, stage 3 unspecified; E66.9 Obesity, unspecified; Z68.31 Body mass index [BMI] 31.0-31.9, adult; Z91.048 Other nonmedicinal substance allergy status; Z79.899 Other long term (current) drug therapy; Z79.82 Long term (current) use of aspirin
CPT/HCPCS: 93005; 99284-25

== ENCOUNTER 2022-07-17 13:40 | Emergency (ER) | payer BC, OTHER ==
[2022-07-17] MEDS ORDERED: Aspirin 81 MG Tab.Chew PO ONE (14:24)
[2022-07-17 16:28] VITALS: BP 116/77; PULSE 75
== END 2022-07-17 16:25 | disposition home or self-care (01) ==
LOC: JD.ED 13:40
DX: R07.89 Other chest pain (principal); E86.0 Dehydration; E66.9 Obesity, unspecified; Z68.31 Body mass index [BMI] 31.0-31.9, adult; Z79.899 Other long term (current) drug therapy
CPT/HCPCS: 36415; 71045; 80053; 84484; 85025; 93005; 99285; A9270

== ENCOUNTER 2024-05-26 09:31 | Emergency (ER) | payer BC, OTHER ==
[2024-05-26 10:00] VITALS: BP 129/78; PULSE 83
== END 2024-05-26 10:00 | disposition left against medical advice (07) ==
LOC: JD.ED 09:31
DX: R07.9 Chest pain, unspecified (principal); K21.9 Gastro-esophageal reflux disease without esophagitis; E66.9 Obesity, unspecified; Z79.899 Other long term (current) drug therapy; Z91.048 Other nonmedicinal substance allergy status; Z68.24 Body mass index [BMI] 24.0-24.9, adult
CPT/HCPCS: 99284